=== PATIENT | female | born 1980 | race American Indian/Alaskan Native ===

== ENCOUNTER → 2024-09-04 16:16 | Outpatient (CLI) | payer SELFPAY | PROVIDERS: Referring Provider Internal Medicine; Visit Provider Internal Medicine | DX: Z23 Encounter for immunization (principal) | CPT/HCPCS: 90471; 90656 ==

== ENCOUNTER 2025-02-19 15:15 | Outpatient (RCR) | payer OTHER, SELFPAY ==
--- NOTE | 2025-01-19 15:50 | PT.OIE ---
Current Diagnoses Stiffness of right hip, not elsewhere classified (01/19/25) Stiffness of other specified joint, not elsewhere classified (01/19/25) Low back pain, unspecified (01/19/25) Weakness (01/19/25) Past Medical History (Last Updated 12/21/24 @ 19:48 by Rupali Masterson) Abnormal Pap smear of cervix Carpal tunnel syndrome (~2002) Chicken pox Decreased hearing Depression Foot pain Hearing loss Migraines Shoulder pain (~2018) Past Surgical History (Last Updated 12/21/24 @ 19:48 by Rupali Masterson) Anesthesia History of eye surgery Visit Care Team Role Provider Type Susy Dominique MD Attending Provider Physician Family Provider Primary Care Provider Referring Provider Specialty: Family Practice [employer] Address: [address] [place] [address], [facility] Email: [email or web address] Physical Therapy Initial Evaluation PT-OP-A Visit Information Start: 01/18/25 16:17 Freq: Status: Active Protocol: Document 01/19/25 07:27 NM (Rec: 01/19/25 12:27 NM [id number]) Out-Patient Physical Therapy Visit Information Visit Information Visit Type Initial Evaluation Visit Note Magaly Visit Start Time 08:17 Visit Stop Time 09:00 Visit Number 1 Evaluation Information Evaluation Date 01/19/25 PT-OP-B Current Condition Start: 01/18/25 16:17 Freq: Status: Active Protocol: Document 01/19/25 07:27 NM (Rec: 01/19/25 12:27 NM [id number]) Current Condition History of Current Condition Onset Date October 2024 Current Complaints pain, tingling History of Current Condition Pt tweaked her back when lifting a couch from a storage shed, reports that occurred Oct 2024. Gradual onset of pain. Did not seek immediate medical attention. Worse with lifting, standing at sink for work (low sink, has to lean over), driving, sitting. 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 She reports a shooting type pain when lifting, she reports that pain the radiates from the sacrum to mid thoracic spine. Reports that when driving and sitting , she has shooting pain that radiates to the R hip. Haider changes to bowel or bladder control. Pt works from 7-11 or 11:30 (able to take a break earlier than that), 45 min break for lunch/break. Pt reports that she gets tingling into last 2 toes on ea foot, occurs in sitting but only happens occasionally; 15-20 min lasts, better with movement, does not occur with standing/working, only with sitting. Sleeps on L side, occasionally R hip pain, but usually only feel stiff. Prior Treatments and Tests No imaging performed at this time Treatment Goals Patient/Caregiver Goals driving with less pain, lifting with less pain, standing with less pain Current Functional Impairments (Reported) Functional Limitations- Mobility/Gait standing: no limitations sitting/drivin min (has to lean chair back, truck)- David greene Functional Limitations- Work/School lifting c/ 25# from ground level (50# but has coworkers assist) has to slide boxes on carts vs carrying PT-OP-C Subjective Start: 01/18/25 16:17 Freq: Status: Active Protocol: Document 01/19/25 07:27 NM (Rec: 01/19/25 12:27 NM [id number]) OP-PT Subjective Patient Comments Patient Comments Pt consents to participate in PT evaluation Patient Questionnaires Oswestry Low Back Index Oswestry Score 20/100 OP-PT Pain Assessment Location lumbar spine Pain Location Details along spine Intensity 3 Scale Used Numeric (0 - 10) Description Dull,Shooting Description- Other worst: 7-8 Pain Aggravating Factors Position,ADL's,Activity, Sitting,Bending,Lifting Pain Alleviating Factors Cold,Heat,Medication Other Pain Alleviating Factors hot-cold pack, alternates aleve-ibuprofen (takes pm, prn lunch) PT-OP-F Manual Assessment Start: 01/18/25 16:17 Freq: Status: Active Protocol: Document 01/19/25 07:27 NM (Rec: 01/19/25 12:27 NM [id number]) Manual Assessments Soft Tissue Assessment Soft Tissue Mobility Assessment Tightness of hip flexors, R hamstring > L hamstring Joint Mobility Assessment Joint Mobility Assessment Hypomobility of lumbar spine with PA springing, mild tenderness at upper lumbar spine PT-OP-G Mobility & Gait Start: 01/18/25 16:17 Freq: Status: Active Protocol: Document 01/19/25 07:27 NM (Rec: 02/18/25 16:00 NM [id number]) OP Gait Assessment Gait Gait Assistance Required: Independent Distance (Feet) 150 Comments Gait Comments slightly antalgic R stance, lateral trunk lean PT-OP-J Posture/Palpation/Skin Start: 01/18/25 16:17 Freq: Status: Active Protocol: Document 01/19/25 07:27 NM (Rec: 01/19/25 12:27 NM [id number]) Posture Evaluation Position Standing Head/C-Spine Posture Forward Head Shoulder Posture (L) Rounded,(R) Rounded Knee Posture (L) Genu Valgus,(R) Genu Valgus Comments Posture Comments iliacs rotated decreased core stabilization Palpation Assessment Location R hip Palpation Details Tenderness along greater trochanter, glute medius, insertion, glute max especially along SIJ lumbar spine Palpation Details Tenderness to palpation along TL junction, L1-5 R>L, R/L PSIS, following iliac crest on R side posterior > anterior no tenderness along SIJ PT-OP-K Range of Motion Start: 01/18/25 16:17 Freq: Status: Active Protocol: Document 01/19/25 07:27 NM (Rec: 01/19/25 12:27 NM [id number]) Lumbar Spine Range of Motion Lumbar Spine Active Percentage Flexion 100 Extension 100 Rotation Left 100 Rotation Right 100 Lateral Flexion Left 100 Lateral Flexion Right 100 Comments pain reproduced with end range extension, radiates to anterior hip Hip Goniometric Range of Motion Hip Right Flexion w/Knee Flexed 100 Abduction 20 Internal Rotation 25 External Rotation 25 Comments pain with IR and ER Left Flexion w/Knee Flexed 110 Abduction 20 Internal Rotation 30 External Rotation 25 PT-OP-L Special Tests Start: 01/18/25 16:17 Freq: Status: Active Protocol: Document 01/19/25 07:27 NM (Rec: 01/19/25 12:27 NM [id number]) Special Tests Lumbar Spine Special Tests Straight Leg Raise Test Results + Comments R Slump Test Results + Comments B (R>L) traction Test Results + alvarez/quadrant Test Results + Comments R Hip Special Tests Stinchfield Resisted Hip Flexion Test Results - FADIR Test Results + BALWINDER Test Results - Posterior Labral Test Test Results - Anterior Labral Test Test Results - Scour Test Test Results - PT-OP-M Strength Start: 01/18/25 16:17 Freq: Status: Active Protocol: Document 01/19/25 07:27 NM (Rec: 01/19/25 12:27 NM [id number]) Trunk Strength Trunk Manual Muscle Testing Flexion 4 Good Extension 4 Good Rotation Left 4 Good Rotation Right 4 Good Lateral Flexion Left 4 Good Lateral Flexion Right 4 Good Comments pain with resisted lateral flexion R Hip Strength Hip Manual Muscle Testing Right Flexion (L2) 4- Good- Extension (S1) 4- Good- Abduction 4- Good- Adduction 4- Good- External Rotation 4- Good- Internal Rotation 4- Good- Comments abduction painful at lateral hip; mild pain reproduction with ER/IR Left Flexion (L2) 4- Good- Extension (S1) 4 Good Abduction 4 Good Adduction 4 Good External Rotation 4 Good Internal Rotation 4 Good Knee Strength Knee Manual Muscle Testing Right Flexion (S2) 4 Good Extension (L3) 4 Good Left Flexion (S2) 4 Good Extension (L3) 4 Good PT-OP-Q Treatments Start: 01/18/25 16:17 Freq: Status: Active Protocol: Document 01/19/25 07:27 NM (Rec: 01/19/25 12:27 NM [id number]) Therapeutic Exercises Supine Exercises self lumbar traction Equipment Used bolster Reps/Minutes 2 min Comments educated on use during day to offload back bridge Supine Exercise Name HEP Side bilateral Equipment Used cued ppt Reps/Minutes 10 knee to chest Supine Exercise Name for stretch- HEP Side left Reps/Minutes 2x30 Comments feels really good Prone Exercises prone on elbows Reps/Minutes 15 sec Comments poor tolerance prone lying Equipment Used hands on head Reps/Minutes 1 min Comments jaron well Self-Care/Home Management Treatment Education Patient Education Joint Protection,Pain Management,Posture Other Education Educated with anatomical spinal model on spinal anatomy , relation of discs and nerves , radiating vs radicular pain, hydrostatic pressure, body mechanics Education on general activity modifications including adjusting break schedule to decrease strain on low back vs taking breaks all at once PT-OP-T Assessment and Plan Start: 01/18/25 16:17 Freq: Status: Active Protocol: Document 01/19/25 07:27 NM (Rec: 01/19/25 12:27 NM [id number]) Physical Therapy Assessment Rehab Potential Rehabilitation Potential Good Evaluation Complexity Number of Personal Factors/Comorbidities 3 or More Number of Body Systems Impaired 3 Clinical Presentation at Evaluation Stable Impairments Impairments Activity Tolerance,Functional Activities,Functional Mobility ,Gait,Integument,Pain,Posture, ROM,Sensation,Soft Tissue Mobility,Strength,Transfers Other Concerns Age Related Concerns PMH: back pain, hearing problems, varicose veins. Hx of varicose laser procedure in 2020. Medications: ibuprofen and advil for pain relief Barriers to Rehabilitation Pt works job with repetitive tasks including standing, lifting and carrying 25-50# individually. Pt also has a commute to work Goals Three Impairment JOCELIN 20%, pain with sitting/ driving during commute Short Term Goal (STG) Pt will be educated on sitting ergonomics with driving to decrease pain STG Duration 02/12/25 Endless Track Vehicle Mechanic Goal (LTG) Pt will decrease JOCELIN <12% impairment in order to demonstrate improved tolerance for sitting and driving LTG Duration 03/19/25 Two Impairment repetitive body mechanics with lifting, poor activity modification Short Term Goal (STG) Pt will be educated on body mechanics with lifting and standing, in addition to activity modifications at work for improved pain management STG Duration 02/12/25 Half-Way Goal (LTG) Pt will report <3/10 back pain with standing and lifting at work LTG Duration 03/19/25 One Impairment not performing HEP to manage symptoms Endless Track Vehicle Mechanic Goal (LTG) Pt will report compliance with HEP at least 2-3x/wk in order to maximize progression with PT and transition to maintenance upon discharge. LTG Duration 03/19/25 Assessment Summary Assessment Pt is a 44 y.o. presenting with subacute lumbar and thoracic pain, in addition to R hip pain following lifting a couch in October 2024. Pain is worse in sitting, standing with flexion, lifting, carrying, and driving. Pt has no limitations in trunk ROM, but pain is present with full extension; R hip ROM also reproduces familiar symptoms especially along iliac crest/ groin. Symptoms are reproduced with resisted R lateral flexion and hip abduction/ER/ IR; also with palpation along lumbar spine and abductors. Vertebral compression, slump, and straight leg raise reproduce pain on R side; traction and exercise relieves pain. Pt likely has neural tension in addition to discogenic pain following lifting incident with referral to R hip; however, will continue to assess R lateral hip pain and pain with hip abduction. Pt works job involving repetitive lifting 25-50# individually and standing for long periods of time. PT educated pt on exam findings and plan of care. Pt would benefit from skilled PT for progressive mobility and strengthening, in addition to education on activity modification and body mechanics in order to improve symptom management and activity tolerance. hip R - flexor, PSIS; disc Physical Therapy Plan Frequency and Duration Frequency of Treatment 2x/Week Duration of treatment (weeks) 8 Plan of Care Start Date 01/19/25 Plan of Care End Date 03/19/25 Therapeutic Interventions Therapeutic Interventions Balance Training,Gait Training ,Home Exercise Program,Joint Mobilizations,Manual Therapy, Neuromuscular Re-education, Orthotic/Prosthetic Management ,Patient/Caregiver Education, Self-Care/Home Management, Sensory Integration,Soft Tissue Mobilization,Taping, Therapeutic Activities, Therapeutic Exercises Modalities Cold Pack/Ice Massage,Electric Stimulation,Hot Packs, Traction- Mechanical, Ultrasound Next Visit Focus/Plan Next Note Type Treatment Note Next Visit Plan LTR, traction, sidelying offloading glute med sofia, STS vs bridge, side steps, hip strength HS length, can trial nerve gliding
--- NOTE | 2025-01-22 16:16 | PT.OTN ---
Current Diagnoses Stiffness of right hip, not elsewhere classified (01/22/25) Stiffness of other specified joint, not elsewhere classified (01/22/25) Low back pain, unspecified (01/22/25) Weakness (01/22/25) Physical Therapy Treatment Note PT-OP-A Visit Information Start: 01/18/25 16:17 Freq: Status: Active Protocol: Document 01/22/25 13:51 NM (Rec: 01/22/25 14:34 NM [id number]) Out-Patient Physical Therapy Visit Information Visit Information Visit Type Treatment Note Visit Note Magaly Visit Start Time 13:51 Visit Stop Time 14:30 Visit Number 2 Evaluation Information Evaluation Date 01/19/25 PT-OP-B Current Condition Start: 01/18/25 16:17 Freq: Status: Active Protocol: Document 01/19/25 07:27 NM (Rec: 01/19/25 12:27 NM [id number]) Current Condition History of Current Condition Onset Date October 2024 Current Complaints pain, tingling History of Current Condition Pt tweaked her back when lifting a couch from a storage shed, reports that occurred Oct 2024. Gradual onset of pain. Did not seek immediate medical attention. Worse with lifting, standing at sink for work (low sink, has to lean over), driving, sitting. 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 She reports a shooting type pain when lifting, she reports that pain the radiates from the sacrum to mid thoracic spine. Reports that when driving and sitting , she has shooting pain that radiates to the R hip. Haider changes to bowel or bladder control. Pt works from 7-11 or 11:30 (able to take a break earlier than that), 45 min break for lunch/break. Pt reports that she gets tingling into last 2 toes on ea foot, occurs in sitting but only happens occasionally; 15-20 min lasts, better with movement, does not occur with standing/working, only with sitting. Sleeps on L side, occasionally R hip pain, but usually only feel stiff. Prior Treatments and Tests No imaging performed at this time Treatment Goals Patient/Caregiver Goals driving with less pain, lifting with less pain, standing with less pain Current Functional Impairments (Reported) Functional Limitations- Mobility/Gait standing: no limitations sitting/drivin min (has to lean chair back, truck)- David greene Functional Limitations- Work/School lifting c/ 25# from ground level (50# but has coworkers assist) has to slide boxes on carts vs carrying PT-OP-C Subjective Start: 01/18/25 16:17 Freq: Status: Active Protocol: Document 01/22/25 13:51 NM (Rec: 01/22/25 14:34 NM [id number]) OP-PT Subjective Patient Comments Patient Comments Pt reports 4-5/10 discomfort in low back. But states feeling better than at evaluation. Feels in L low back today and R hip. Did not try exercises due to chores. Just came from work. PT-OP-F Manual Assessment Start: 01/18/25 16:17 Freq: Status: Active Protocol: Document 01/19/25 07:27 NM (Rec: 01/19/25 12:27 NM [id number]) Manual Assessments Soft Tissue Assessment Soft Tissue Mobility Assessment Tightness of hip flexors, R hamstring > L hamstring Joint Mobility Assessment Joint Mobility Assessment Hypomobility of lumbar spine with PA springing, mild tenderness at upper lumbar spine PT-OP-G Mobility & Gait Start: 01/18/25 16:17 Freq: Status: Active Protocol: Document 01/19/25 07:27 NM (Rec: 01/19/25 16:00 NM [id number]) OP Gait Assessment Gait Gait Assistance Required: Independent Distance (Feet) 150 Comments Gait Comments slightly antalgic R stance, lateral trunk lean PT-OP-J Posture/Palpation/Skin Start: 01/18/25 16:17 Freq: Status: Active Protocol: Document 01/19/25 07:27 NM (Rec: 01/19/25 12:27 NM [id number]) Posture Evaluation Position Standing Head/C-Spine Posture Forward Head Shoulder Posture (L) Rounded,(R) Rounded Knee Posture (L) Genu Valgus,(R) Genu Valgus Comments Posture Comments iliacs rotated decreased core stabilization Palpation Assessment Location R hip Palpation Details Tenderness along greater trochanter, glute medius, insertion, glute max especially along SIJ lumbar spine Palpation Details Tenderness to palpation along TL junction, L1-5 R>L, R/L PSIS, following iliac crest on R side posterior > anterior no tenderness along SIJ PT-OP-K Range of Motion Start: 01/18/25 16:17 Freq: Status: Active Protocol: Document 01/19/25 07:27 NM (Rec: 01/19/25 12:27 NM [id number]) Lumbar Spine Range of Motion Lumbar Spine Active Percentage Flexion 100 Extension 100 Rotation Left 100 Rotation Right 100 Lateral Flexion Left 100 Lateral Flexion Right 100 Comments pain reproduced with end range extension, radiates to anterior hip Hip Goniometric Range of Motion Hip Right Flexion w/Knee Flexed 100 Abduction 20 Internal Rotation 25 External Rotation 25 Comments pain with IR and ER Left Flexion w/Knee Flexed 110 Abduction 20 Internal Rotation 30 External Rotation 25 PT-OP-L Special Tests Start: 01/18/25 16:17 Freq: Status: Active Protocol: Document 01/19/25 07:27 NM (Rec: 01/19/25 12:27 NM [id number]) Special Tests Lumbar Spine Special Tests Straight Leg Raise Test Results + Comments R Slump Test Results + Comments B (R>L) traction Test Results + alvarez/quadrant Test Results + Comments R Hip Special Tests [facility] Resisted Hip Flexion Test Results - FADIR Test Results + BALWINDER Test Results - Posterior Labral Test Test Results - Anterior Labral Test Test Results - Scour Test Test Results - PT-OP-M Strength Start: 01/18/25 16:17 Freq: Status: Active Protocol: Document 01/19/25 07:27 NM (Rec: 01/19/25 12:27 NM [id number]) Trunk Strength Trunk Manual Muscle Testing Flexion 4 Good Extension 4 Good Rotation Left 4 Good Rotation Right 4 Good Lateral Flexion Left 4 Good Lateral Flexion Right 4 Good Comments pain with resisted lateral flexion R Hip Strength Hip Manual Muscle Testing Right Flexion (L2) 4- Good- Extension (S1) 4- Good- Abduction 4- Good- Adduction 4- Good- External Rotation 4- Good- Internal Rotation 4- Good- Comments abduction painful at lateral hip; mild pain reproduction with ER/IR Left Flexion (L2) 4- Good- Extension (S1) 4 Good Abduction 4 Good Adduction 4 Good External Rotation 4 Good Internal Rotation 4 Good Knee Strength Knee Manual Muscle Testing Right Flexion (S2) 4 Good Extension (L3) 4 Good Left Flexion (S2) 4 Good Extension (L3) 4 Good PT-OP-Q Treatments Start: 01/18/25 16:17 Freq: Status: Active Protocol: Document 01/22/25 13:51 NM (Rec: 01/22/25 14:34 NM [id number]) Therapeutic Exercises Supine Exercises pelvic tilts Supine Exercise Name posterior pelvic tilts Side bilateral Reps/Minutes 15 LTR Side bilateral Reps/Minutes 15 ea TrA Supine Exercise Name 1. activation, 2. BKFO Side bilateral Reps/Minutes 10 ea Comments verbal and tactile cues bridge Supine Exercise Name HEP Side bilateral Resistance teal band level 2 at thighs Equipment Used c/ ppt Reps/Minutes 2x10 Comments no pain knee to chest Supine Exercise Name HEP review: 1. stretch uni, 2. stretch B, 3. repeated on blue swazi ball Side bilateral Equipment Used c/ ppt Reps/Minutes 60 ea Standing Exercises hip abduction Side bilateral Resistance AROM Equipment Used @ counter top Reps/Minutes 10 ea Comments c/ core bracing; needs cues Manual Therapy Treatment Consent Patient gave verbal consent for manual Yes treatment Soft Tissue Mobilization hips Body Location glutes Mobilization Type Rolling,Strumming,Sustained Pressure Intensity/Depth Moderate Body Position Prone Comments Positioned with pillow under hips. Tenderness along glute especially top of iliac crest toward greater trochanter. lumbar spine Body Location paraspinals, QL, lat Mobilization Type Rolling,Strumming,Sustained Pressure Intensity/Depth Superficial Body Position Prone Comments Positioned with pillow under hips. Mild tenderness L side today, QL area. Improved with mobilization PT-OP-T Assessment and Plan Start: 01/18/25 16:17 Freq: Status: Active Protocol: Document 01/22/25 13:51 NM (Rec: 01/22/25 14:34 NM [id number]) Physical Therapy Assessment Goals Three Impairment JOCELIN 20%, pain with sitting/ driving during commute Short Term Goal (STG) Pt will be educated on sitting ergonomics with driving to decrease pain STG Duration 02/12/25 Alf Goal (LTG) Pt will decrease JOCELIN <12% impairment in order to demonstrate improved tolerance for sitting and driving LTG Duration 03/19/25 Two Impairment repetitive body mechanics with lifting, poor activity modification Short Term Goal (STG) Pt will be educated on body mechanics with lifting and standing, in addition to activity modifications at work for improved pain management STG Duration 02/12/25 Administration Professional Goal (LTG) Pt will report <3/10 back pain with standing and lifting at work LTG Duration 03/19/25 One Impairment not performing HEP to manage symptoms Alf Goal (LTG) Pt will report compliance with HEP at least 2-3x/wk in order to maximize progression with PT and transition to maintenance upon discharge. LTG Duration 03/19/25 Assessment Summary Assessment Pt tolerated session well, no increeased pain. However, has tendency to feel most exercises in R anterior hip without cueing for posterior pelvic tilt. Demos anterior pelvic tilt usually. PT provided education on more neutral spine positioning for exercises and posture, especially at work. Initiated core bracing and gentle glute strengthening. Moderate cueing for correct execution and to minimize compensations. Progressing with core bracing. Pt does have slight R glute pain c/ active hip abd but decreased with reps and partial ROM. Tenderness over R posterorlateral glute, trigger points present. Physical Therapy Plan Frequency and Duration Frequency of Treatment 2x/Week Duration of treatment (weeks) 8 Plan of Care Start Date 01/19/25 Plan of Care End Date 03/19/25 Therapeutic Interventions Therapeutic Interventions Balance Training,Gait Training ,Home Exercise Program,Joint Mobilizations,Manual Therapy, Neuromuscular Re-education, Orthotic/Prosthetic Management ,Patient/Caregiver Education, Self-Care/Home Management, Sensory Integration,Soft Tissue Mobilization,Taping, Therapeutic Activities, Therapeutic Exercises Modalities Cold Pack/Ice Massage,Electric Stimulation,Hot Packs, Traction- Mechanical, Ultrasound Next Visit Focus/Plan Next Note Type Treatment Note Next Visit Plan Reassess core bracing, trial supine vs standing hip abd sofia. Progress bridge to on ball or STS. Possible quadruped hip strengthening and core bracing. sciatic nerve glide, cat camel, KTC vs child pose. Postural education HS length, can trial nerve gliding manual to glute, LS, can trial hip mobilizations
--- NOTE | 2025-01-26 16:49 | PT.OTN ---
Current Diagnoses Stiffness of right hip, not elsewhere classified (01/26/25) Stiffness of other specified joint, not elsewhere classified (01/26/25) Low back pain, unspecified (01/26/25) Weakness (01/26/25) Physical Therapy Treatment Note PT-OP-A Visit Information Start: 01/18/25 16:17 Freq: Status: Active Protocol: Document 01/26/25 15:28 NBM (Rec: 01/26/25 16:48 NBM [id number]) Out-Patient Physical Therapy Visit Information Visit Information Visit Type Treatment Note Visit Note Magaly Visit Start Time 15:22 Visit Stop Time 16:02 Visit Number 3 Number of HOME DECORATOR Visits 1 Evaluation Information Evaluation Date 01/19/25 PT-OP-B Current Condition Start: 01/18/25 16:17 Freq: Status: Active Protocol: Document 01/19/25 07:27 NM (Rec: 01/19/25 12:27 NM [id number]) Current Condition History of Current Condition Onset Date October 2024 Current Complaints pain, tingling History of Current Condition Pt tweaked her back when lifting a couch from a storage shed, reports that occurred Oct 2024. Gradual onset of pain. Did not seek immediate medical attention. Worse with lifting, standing at sink for work (low sink, has to lean over), driving, sitting. 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 She reports a shooting type pain when lifting, she reports that pain the radiates from the sacrum to mid thoracic spine. Reports that when driving and sitting , she has shooting pain that radiates to the R hip. Haider changes to bowel or bladder control. Pt works from 7-11 or 11:30 (able to take a break earlier than that), 45 min break for lunch/break. Pt reports that she gets tingling into last 2 toes on ea foot, occurs in sitting but only happens occasionally; 15-20 min lasts, better with movement, does not occur with standing/working, only with sitting. Sleeps on L side, occasionally R hip pain, but usually only feel stiff. Prior Treatments and Tests No imaging performed at this time Treatment Goals Patient/Caregiver Goals driving with less pain, lifting with less pain, standing with less pain Current Functional Impairments (Reported) Functional Limitations- Mobility/Gait standing: no limitations sitting/drivin min (has to lean chair back, truck)- David titan Functional Limitations- Work/School lifting c/ 25# from ground level (50# but has coworkers assist) has to slide boxes on carts vs carrying PT-OP-C Subjective Start: 01/18/25 16:17 Freq: Status: Active Protocol: Document 01/26/25 15:28 NBM (Rec: 01/26/25 16:48 NBM [id number]) OP-PT Subjective Patient Comments Patient Comments Pt reports 8/10 discomfort in low back R side and back of R hip after heavy lifting at work today (20#-25#). PT-OP-F Manual Assessment Start: 01/18/25 16:17 Freq: Status: Active Protocol: Document 01/19/25 07:27 NM (Rec: 01/19/25 12:27 NM [id number]) Manual Assessments Soft Tissue Assessment Soft Tissue Mobility Assessment Tightness of hip flexors, R hamstring > L hamstring Joint Mobility Assessment Joint Mobility Assessment Hypomobility of lumbar spine with PA springing, mild tenderness at upper lumbar spine PT-OP-G Mobility & Gait Start: 01/18/25 16:17 Freq: Status: Active Protocol: Document 01/19/25 07:27 NM (Rec: 01/19/25 16:00 NM [id number]) OP Gait Assessment Gait Gait Assistance Required: Independent Distance (Feet) 150 Comments Gait Comments slightly antalgic R stance, lateral trunk lean PT-OP-J Posture/Palpation/Skin Start: 01/18/25 16:17 Freq: Status: Active Protocol: Document 01/19/25 07:27 NM (Rec: 01/19/25 12:27 NM [id number]) Posture Evaluation Position Standing Head/C-Spine Posture Forward Head Shoulder Posture (L) Rounded,(R) Rounded Knee Posture (L) Genu Valgus,(R) Genu Valgus Comments Posture Comments iliacs rotated decreased core stabilization Palpation Assessment Location R hip Palpation Details Tenderness along greater trochanter, glute medius, insertion, glute max especially along SIJ lumbar spine Palpation Details Tenderness to palpation along TL junction, L1-5 R>L, R/L PSIS, following iliac crest on R side posterior > anterior no tenderness along SIJ PT-OP-K Range of Motion Start: 01/18/25 16:17 Freq: Status: Active Protocol: Document 01/19/25 07:27 NM (Rec: 01/19/25 12:27 NM [id number]) Lumbar Spine Range of Motion Lumbar Spine Active Percentage Flexion 100 Extension 100 Rotation Left 100 Rotation Right 100 Lateral Flexion Left 100 Lateral Flexion Right 100 Comments pain reproduced with end range extension, radiates to anterior hip Hip Goniometric Range of Motion Hip Right Flexion w/Knee Flexed 100 Abduction 20 Internal Rotation 25 External Rotation 25 Comments pain with IR and ER Left Flexion w/Knee Flexed 110 Abduction 20 Internal Rotation 30 External Rotation 25 PT-OP-L Special Tests Start: 01/18/25 16:17 Freq: Status: Active Protocol: Document 01/19/25 07:27 NM (Rec: 01/19/25 12:27 NM [id number]) Special Tests Lumbar Spine Special Tests Straight Leg Raise Test Results + Comments R Slump Test Results + Comments B (R>L) traction Test Results + alvarez/quadrant Test Results + Comments R Hip Special Tests [facility] Resisted Hip Flexion Test Results - FADIR Test Results + BALWINDER Test Results - Posterior Labral Test Test Results - Anterior Labral Test Test Results - Scour Test Test Results - PT-OP-M Strength Start: 01/18/25 16:17 Freq: Status: Active Protocol: Document 01/19/25 07:27 NM (Rec: 01/19/25 12:27 NM [id number]) Trunk Strength Trunk Manual Muscle Testing Flexion 4 Good Extension 4 Good Rotation Left 4 Good Rotation Right 4 Good Lateral Flexion Left 4 Good Lateral Flexion Right 4 Good Comments pain with resisted lateral flexion R Hip Strength Hip Manual Muscle Testing Right Flexion (L2) 4- Good- Extension (S1) 4- Good- Abduction 4- Good- Adduction 4- Good- External Rotation 4- Good- Internal Rotation 4- Good- Comments abduction painful at lateral hip; mild pain reproduction with ER/IR Left Flexion (L2) 4- Good- Extension (S1) 4 Good Abduction 4 Good Adduction 4 Good External Rotation 4 Good Internal Rotation 4 Good Knee Strength Knee Manual Muscle Testing Right Flexion (S2) 4 Good Extension (L3) 4 Good Left Flexion (S2) 4 Good Extension (L3) 4 Good PT-OP-Q Treatments Start: 01/18/25 16:17 Freq: Status: Active Protocol: Document 01/26/25 15:28 NBM (Rec: 01/26/25 16:48 NBM [id number]) Therapeutic Exercises Supine Exercises pelvic tilts Supine Exercise Name posterior pelvic tilts Side bilateral Reps/Minutes 15x 2 breathcycle hold Comments tactile cues, vc for no breathholding LTR Supine Exercise Name HEP review Side bilateral Reps/Minutes 15 ea Comments cues for PPT and breath and painfree ROM; dc'd d/t pain TrA Supine Exercise Name 1. activation, 2. BKFO (HEP review) Side bilateral Equipment Used self-monitoring medial to ASIS Reps/Minutes 10 x2 breathcycle hold ea Comments verbal and tactile cues bridge Supine Exercise Name HEP review Side bilateral Resistance teal band level 2 at thighs Equipment Used c/ ppt Reps/Minutes 2x10 Comments initial lumbar popping discomfort resolves w/ vc slower pacing,breathwork Standing Exercises low back stretch Standing Exercise Name 1. verbal review pt's personal HEP dez pose 2. Kitchen sink stretch Equipment Used handrail Reps/Minutes 45 Comments added to HEP hip abduction Standing Exercise Name hold: dc'd d/t pt c/o pain. Side bilateral Resistance AROM Equipment Used @ counter top Reps/Minutes 10 ea Comments c/ core bracing; needs cues for TrA, neutral spine, smaller range Self-Care/Home Management Treatment Education Patient Education Body Mechanics,Home Exercise Program,Pain Management, Posture Other Education -Added to HEP: kitchen sink stretch - no HO given. -Removed from HEP: hip abduction standing at counter. -Brief discussion of lifting mechanics for work w/ TrA engagement and breath. -HEP review and edu re: Transverse abdominis m. anatomy and activitation w/ visual aids, interrelationship w/ diaphragm and pelvic floor , and importance of not breathholding to improve core recruitment and low back pain. PT-OP-T Assessment and Plan Start: 01/18/25 16:17 Freq: Status: Active Protocol: Document 01/26/25 15:28 [facility] (Rec: 01/26/25 16:48 [facility] [id number]) Physical Therapy Assessment Goals Three Impairment JOCELIN 20%, pain with sitting/ driving during commute Short Term Goal (STG) Pt will be educated on sitting ergonomics with driving to decrease pain STG Duration 02/12/25 Half-Way Goal (LTG) Pt will decrease JOCELIN <12% impairment in order to demonstrate improved tolerance for sitting and driving LTG Duration 03/19/25 Two Impairment repetitive body mechanics with lifting, poor activity modification Short Term Goal (STG) Pt will be educated on body mechanics with lifting and standing, in addition to activity modifications at work for improved pain management STG Duration 02/12/25 Printer Assistant Goal (LTG) Pt will report <3/10 back pain with standing and lifting at work LTG Duration 03/19/25 One Impairment not performing HEP to manage symptoms Printer Assistant Goal (LTG) Pt will report compliance with HEP at least 2-3x/wk in order to maximize progression with PT and transition to maintenance upon discharge. LTG Duration 03/19/25 Assessment Summary Assessment Allen presents today with 8/ 10 pain in lumbar R side into posterior hip, likely secondary to heavy lifting (20 #-25#) at work today; pain improves to 7/10 end of session. Significant time spent edu pt re: Transverse abdominis m. anatomy and physiology w/ visual aids and emphasis on breathwork for carryover with HEP review and lifting mechanics. Self- awareness of TrA activation and breathwork improves with cues and repetition. She is challenged to maintain TrA during BKFO L>R but demos improved recruitment with cueing. During resisted bridging initial lumbar popping discomfort resolves w / cues for slower pacing, PPT and breathwork. Pt has pain in posterior R hip w/ hip abduction at counter possibly secondary to heavy lifting at work today, and which does not resolve w/ cues for neutral spine, TrA activation, breathwork and smaller range of motion - pt instructed to hold this exercise for now due to pain. Added to HEP: kitchen sink stretch - no HO given. Physical Therapy Plan Frequency and Duration Frequency of Treatment 2x/Week Duration of treatment (weeks) 8 Plan of Care Start Date 01/19/25 Plan of Care End Date 03/19/25 Therapeutic Interventions Therapeutic Interventions Balance Training,Gait Training ,Home Exercise Program,Joint Mobilizations,Manual Therapy, Neuromuscular Re-education, Orthotic/Prosthetic Management ,Patient/Caregiver Education, Self-Care/Home Management, Sensory Integration,Soft Tissue Mobilization,Taping, Therapeutic Activities, Therapeutic Exercises Modalities Cold Pack/Ice Massage,Electric Stimulation,Hot Packs, Traction- Mechanical, Ultrasound Next Visit Focus/Plan Next Note Type Treatment Note Next Visit Plan Next: hip abd iso in standing, bridging on ball. Manual prn. Sitting posture w/ PPT, squatting and lifting mechanics for work. POC: Reassess core bracing, trial supine vs standing hip abd isometrics. Progress bridge to on ball or STS. Possible quadruped hip strengthening and core bracing . sciatic nerve glide, EMIGDIO leblanc vs child pose. Postural education HS length, can trial nerve gliding manual to glute, LS, can trial hip mobilizations
--- NOTE | 2025-02-02 09:20 | PT.OTN ---
Current Diagnoses Stiffness of right hip, not elsewhere classified (02/02/25) Stiffness of other specified joint, not elsewhere classified (02/02/25) Low back pain, unspecified (02/02/25) Weakness (02/02/25) Physical Therapy Treatment Note PT-OP-A Visit Information Start: 01/18/25 16:17 Freq: Status: Active Protocol: Document 02/02/25 08:16 NM (Rec: 02/02/25 09:19 NM [id number]) Out-Patient Physical Therapy Visit Information Visit Information Visit Type Treatment Note Visit Note Magaly Visit Start Time 08:17 Visit Stop Time 09:00 Visit Number 4 Evaluation Information Evaluation Date 01/19/25 PT-OP-B Current Condition Start: 01/18/25 16:17 Freq: Status: Active Protocol: Document 01/19/25 07:27 NM (Rec: 01/19/25 12:27 NM [id number]) Current Condition History of Current Condition Onset Date October 2024 Current Complaints pain, tingling History of Current Condition Pt tweaked her back when lifting a couch from a storage shed, reports that occurred Oct 2024. Gradual onset of pain. Did not seek immediate medical attention. Worse with lifting, standing at sink for work (low sink, has to lean over), driving, sitting. 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 She reports a shooting type pain when lifting, she reports that pain the radiates from the sacrum to mid thoracic spine. Reports that when driving and sitting , she has shooting pain that radiates to the R hip. Haider changes to bowel or bladder control. Pt works from 7-11 or 11:30 (able to take a break earlier than that), 45 min break for lunch/break. Pt reports that she gets tingling into last 2 toes on ea foot, occurs in sitting but only happens occasionally; 15-20 min lasts, better with movement, does not occur with standing/working, only with sitting. Sleeps on L side, occasionally R hip pain, but usually only feel stiff. Prior Treatments and Tests No imaging performed at this time Treatment Goals Patient/Caregiver Goals driving with less pain, lifting with less pain, standing with less pain Current Functional Impairments (Reported) Functional Limitations- Mobility/Gait standing: no limitations sitting/drivin min (has to lean chair back, truck)- David greene Functional Limitations- Work/School lifting c/ 25# from ground level (50# but has coworkers assist) has to slide boxes on carts vs carrying PT-OP-C Subjective Start: 01/18/25 16:17 Freq: Status: Active Protocol: Document 02/02/25 08:16 NM (Rec: 02/02/25 09:19 NM [id number]) OP-PT Subjective Patient Comments Patient Comments Pt reports pain is decreasing, reports consistently 5-6/10 ( starting 8-10). Pt reports that the exercises that feel best with core exercises, banded hip ER. Bought a e-stim , which helps a lot. [place] good after last session. 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 PT-OP-F Manual Assessment Start: 01/18/25 16:17 Freq: Status: Active Protocol: Document 01/19/25 07:27 NM (Rec: 01/19/25 12:27 NM [id number]) Manual Assessments Soft Tissue Assessment Soft Tissue Mobility Assessment Tightness of hip flexors, R hamstring > L hamstring Joint Mobility Assessment Joint Mobility Assessment Hypomobility of lumbar spine with PA springing, mild tenderness at upper lumbar spine PT-OP-G Mobility & Gait Start: 01/18/25 16:17 Freq: Status: Active Protocol: Document 01/19/25 07:27 NM (Rec: 01/19/25 16:00 NM [id number]) OP Gait Assessment Gait Gait Assistance Required: Independent Distance (Feet) 150 Comments Gait Comments slightly antalgic R stance, lateral trunk lean PT-OP-J Posture/Palpation/Skin Start: 01/18/25 16:17 Freq: Status: Active Protocol: Document 01/19/25 07:27 NM (Rec: 01/19/25 12:27 NM [id number]) Posture Evaluation Position Standing Head/C-Spine Posture Forward Head Shoulder Posture (L) Rounded,(R) Rounded Knee Posture (L) Genu Valgus,(R) Genu Valgus Comments Posture Comments iliacs rotated decreased core stabilization Palpation Assessment Location R hip Palpation Details Tenderness along greater trochanter, glute medius, insertion, glute max especially along SIJ lumbar spine Palpation Details Tenderness to palpation along TL junction, L1-5 R>L, R/L PSIS, following iliac crest on R side posterior > anterior no tenderness along SIJ PT-OP-K Range of Motion Start: 01/18/25 16:17 Freq: Status: Active Protocol: Document 01/19/25 07:27 NM (Rec: 01/19/25 12:27 NM [id number]) Lumbar Spine Range of Motion Lumbar Spine Active Percentage Flexion 100 Extension 100 Rotation Left 100 Rotation Right 100 Lateral Flexion Left 100 Lateral Flexion Right 100 Comments pain reproduced with end range extension, radiates to anterior hip Hip Goniometric Range of Motion Hip Right Flexion w/Knee Flexed 100 Abduction 20 Internal Rotation 25 External Rotation 25 Comments pain with IR and ER Left Flexion w/Knee Flexed 110 Abduction 20 Internal Rotation 30 External Rotation 25 PT-OP-L Special Tests Start: 01/18/25 16:17 Freq: Status: Active Protocol: Document 01/19/25 07:27 NM (Rec: 01/19/25 12:27 NM [id number]) Special Tests Lumbar Spine Special Tests Straight Leg Raise Test Results + Comments R Slump Test Results + Comments B (R>L) traction Test Results + alvarez/quadrant Test Results + Comments R Hip Special Tests [facility] Resisted Hip Flexion Test Results - FADIR Test Results + BALWINDER Test Results - Posterior Labral Test Test Results - Anterior Labral Test Test Results - Scour Test Test Results - PT-OP-M Strength Start: 01/18/25 16:17 Freq: Status: Active Protocol: Document 01/19/25 07:27 NM (Rec: 01/19/25 12:27 NM [id number]) Trunk Strength Trunk Manual Muscle Testing Flexion 4 Good Extension 4 Good Rotation Left 4 Good Rotation Right 4 Good Lateral Flexion Left 4 Good Lateral Flexion Right 4 Good Comments pain with resisted lateral flexion R Hip Strength Hip Manual Muscle Testing Right Flexion (L2) 4- Good- Extension (S1) 4- Good- Abduction 4- Good- Adduction 4- Good- External Rotation 4- Good- Internal Rotation 4- Good- Comments abduction painful at lateral hip; mild pain reproduction with ER/IR Left Flexion (L2) 4- Good- Extension (S1) 4 Good Abduction 4 Good Adduction 4 Good External Rotation 4 Good Internal Rotation 4 Good Knee Strength Knee Manual Muscle Testing Right Flexion (S2) 4 Good Extension (L3) 4 Good Left Flexion (S2) 4 Good Extension (L3) 4 Good PT-OP-Q Treatments Start: 01/18/25 16:17 Freq: Status: Active Protocol: Document 02/02/25 08:16 NM (Rec: 02/02/25 09:19 NM [id number]) Therapeutic Exercises Supine Exercises fadi stretch Supine Exercise Name off end of bed Side bilateral Equipment Used knee pulled to chest, PT assist to lower Reps/Minutes 60 ea Comments edu to have sister help c/ lower if concerned clam Supine Exercise Name trialed in PT Side bilateral Resistance level 2 band thighs, modified hooklying Equipment Used c/ ppt and core brace Reps/Minutes 8 ea Comments improved control TrA Supine Exercise Name 1. activation, 2. BKFO (HEP review), 3. hooklying january, 4 . heel slides Equipment Used c/ ppt for january Reps/Minutes 10 ea c/ 2 sec breath cycles Comments verbal/tactile & self tactile cues form, slower for control; no pain bridge Supine Exercise Name HEP review Side bilateral Resistance level 2 band > no band Reps/Minutes 10 Comments cued wider RUDDY, ppt first then glute act before lift Standing Exercises hip abd isometric Standing Exercise Name glute med isometric Side bilateral Equipment Used short lever arm at wall Reps/Minutes 2x30 ea Comments reports feels good, RLE more challenging, no pain Manual Therapy Treatment Consent Patient gave verbal consent for manual Yes treatment Soft Tissue Mobilization hips Body Location glutes Mobilization Type Rolling,Strumming,Sustained Pressure Intensity/Depth Superficial Body Position Prone Comments Positioned with pillow under hips. Tenderness along glute especially top of iliac crest toward greater trochanter. Improved today, reports reduction in tenderness c/ mobilization lumbar spine Body Location paraspinals, QL, lat Mobilization Type Rolling,Strumming,Sustained Pressure Intensity/Depth Superficial Body Position Prone Comments Positioned with pillow under hips. Improved with mobilization. No tenderness today PT-OP-T Assessment and Plan Start: 01/18/25 16:17 Freq: Status: Active Protocol: Document 02/02/25 08:16 NM (Rec: 02/02/25 09:19 NM [id number]) Physical Therapy Assessment Goals Three Impairment JOCELIN 20%, pain with sitting/ driving during commute Short Term Goal (STG) Pt will be educated on sitting ergonomics with driving to decrease pain STG Duration 02/12/25 Retirement Goal (LTG) Pt will decrease JOCELIN <12% impairment in order to demonstrate improved tolerance for sitting and driving LTG Duration 03/19/25 Two Impairment repetitive body mechanics with lifting, poor activity modification Short Term Goal (STG) Pt will be educated on body mechanics with lifting and standing, in addition to activity modifications at work for improved pain management STG Duration 02/12/25 Retirement Goal (LTG) Pt will report <3/10 back pain with standing and lifting at work LTG Duration 03/19/25 One Impairment not performing HEP to manage symptoms Retirement Goal (LTG) Pt will report compliance with HEP at least 2-3x/wk in order to maximize progression with PT and transition to maintenance upon discharge. LTG Duration 03/19/25 Assessment Summary Assessment Pt reports feeling better after PT session but does not provide pain number as needs to get to work. Increased time spent on core activation, HEP review, and limiting breathholding with exercises as pt combines/confuses several exercises when asked. Needs both verbal and tactile/ self tactile cueing for correct execution. Improved pain management with posterior pelvic tilt. Progressed to leg extension core today, which pt able to perform with cueing correctly. Trialed fadi stretch and glute medius isometric for improved low back and hip pain management in standing. Pt responds better to manual this treatment, would continue to benefit from in future sessions especially to address restrictions in soft tissue length and hip mobility. Physical Therapy Plan Frequency and Duration Frequency of Treatment 2x/Week Duration of treatment (weeks) 8 Plan of Care Start Date 01/19/25 Plan of Care End Date 03/19/25 Therapeutic Interventions Therapeutic Interventions Balance Training,Gait Training ,Home Exercise Program,Joint Mobilizations,Manual Therapy, Neuromuscular Re-education, Orthotic/Prosthetic Management ,Patient/Caregiver Education, Self-Care/Home Management, Sensory Integration,Soft Tissue Mobilization,Taping, Therapeutic Activities, Therapeutic Exercises Modalities Cold Pack/Ice Massage,Electric Stimulation,Hot Packs, Traction- Mechanical, Ultrasound Next Visit Focus/Plan Next Note Type Treatment Note Next Visit Plan hip abd iso in standing, assess fadi stretch, add to HEP, review core as needed. Trial prone strengthening, STS c/ band Manual prn. Standing/Sitting posture w/ PPT, squatting and lifting mechanics for work. POC: Reassess core bracing, trial supine vs standing hip abd isometrics. Progress bridge to on ball or STS. Possible quadruped hip strengthening and core bracing . sciatic nerve glide, cat kevin, KTC vs child pose. Postural education HS length, can trial nerve gliding manual to glute, LS, can trial hip mobilizations
--- NOTE | 2025-02-04 09:02 | PT.OTN ---
Current Diagnoses Stiffness of right hip, not elsewhere classified (02/04/25) Stiffness of other specified joint, not elsewhere classified (02/04/25) Low back pain, unspecified (02/04/25) Weakness (02/04/25) Physical Therapy Treatment Note PT-OP-A Visit Information Start: 01/18/25 16:17 Freq: Status: Active Protocol: Document 02/04/25 08:18 NM (Rec: 02/04/25 09:02 NM [id number]) Out-Patient Physical Therapy Visit Information Visit Information Visit Type Treatment Note Visit Note Magaly Visit Start Time 08:19 Visit Stop Time 08:59 Visit Number 5 Evaluation Information Evaluation Date 01/19/25 PT-OP-B Current Condition Start: 01/18/25 16:17 Freq: Status: Active Protocol: Document 01/19/25 07:27 NM (Rec: 01/19/25 12:27 NM [id number]) Current Condition History of Current Condition Onset Date October 2024 Current Complaints pain, tingling History of Current Condition Pt tweaked her back when lifting a couch from a storage shed, reports that occurred Oct 2024. Gradual onset of pain. Did not seek immediate medical attention. Worse with lifting, standing at sink for work (low sink, has to lean over), driving, sitting. 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 She reports a shooting type pain when lifting, she reports that pain the radiates from the sacrum to mid thoracic spine. Reports that when driving and sitting , she has shooting pain that radiates to the R hip. Haider changes to bowel or bladder control. Pt works from 7-11 or 11:30 (able to take a break earlier than that), 45 min break for lunch/break. Pt reports that she gets tingling into last 2 toes on ea foot, occurs in sitting but only happens occasionally; 15-20 min lasts, better with movement, does not occur with standing/working, only with sitting. Sleeps on L side, occasionally R hip pain, but usually only feel stiff. Prior Treatments and Tests No imaging performed at this time Treatment Goals Patient/Caregiver Goals driving with less pain, lifting with less pain, standing with less pain Current Functional Impairments (Reported) Functional Limitations- Mobility/Gait standing: no limitations sitting/drivin min (has to lean chair back, truck)- David greene Functional Limitations- Work/School lifting c/ 25# from ground level (50# but has coworkers assist) has to slide boxes on carts vs carrying PT-OP-C Subjective Start: 01/18/25 16:17 Freq: Status: Active Protocol: Document 02/04/25 08:18 NM (Rec: 02/04/25 09:02 NM [id number]) OP-PT Subjective Patient Comments Patient Comments Pt reports 5/10 R hip today, no back pain. Reports felt good after last session. PT-OP-F Manual Assessment Start: 01/18/25 16:17 Freq: Status: Active Protocol: Document 01/19/25 07:27 NM (Rec: 01/19/25 12:27 NM [id number]) Manual Assessments Soft Tissue Assessment Soft Tissue Mobility Assessment Tightness of hip flexors, R hamstring > L hamstring Joint Mobility Assessment Joint Mobility Assessment Hypomobility of lumbar spine with PA springing, mild tenderness at upper lumbar spine PT-OP-G Mobility & Gait Start: 01/18/25 16:17 Freq: Status: Active Protocol: Document 01/19/25 07:27 NM (Rec: 01/19/25 16:00 NM [id number]) OP Gait Assessment Gait Gait Assistance Required: Independent Distance (Feet) 150 Comments Gait Comments slightly antalgic R stance, lateral trunk lean PT-OP-J Posture/Palpation/Skin Start: 01/18/25 16:17 Freq: Status: Active Protocol: Document 01/19/25 07:27 NM (Rec: 01/19/25 12:27 NM [id number]) Posture Evaluation Position Standing Head/C-Spine Posture Forward Head Shoulder Posture (L) Rounded,(R) Rounded Knee Posture (L) Genu Valgus,(R) Genu Valgus Comments Posture Comments iliacs rotated decreased core stabilization Palpation Assessment Location R hip Palpation Details Tenderness along greater trochanter, glute medius, insertion, glute max especially along SIJ lumbar spine Palpation Details Tenderness to palpation along TL junction, L1-5 R>L, R/L PSIS, following iliac crest on R side posterior > anterior no tenderness along SIJ PT-OP-K Range of Motion Start: 01/18/25 16:17 Freq: Status: Active Protocol: Document 01/19/25 07:27 NM (Rec: 01/19/25 12:27 NM [id number]) Lumbar Spine Range of Motion Lumbar Spine Active Percentage Flexion 100 Extension 100 Rotation Left 100 Rotation Right 100 Lateral Flexion Left 100 Lateral Flexion Right 100 Comments pain reproduced with end range extension, radiates to anterior hip Hip Goniometric Range of Motion Hip Right Flexion w/Knee Flexed 100 Abduction 20 Internal Rotation 25 External Rotation 25 Comments pain with IR and ER Left Flexion w/Knee Flexed 110 Abduction 20 Internal Rotation 30 External Rotation 25 PT-OP-L Special Tests Start: 01/18/25 16:17 Freq: Status: Active Protocol: Document 01/19/25 07:27 NM (Rec: 01/19/25 12:27 NM [id number]) Special Tests Lumbar Spine Special Tests Straight Leg Raise Test Results + Comments R Slump Test Results + Comments B (R>L) traction Test Results + alvarez/quadrant Test Results + Comments R Hip Special Tests Stinchfield Resisted Hip Flexion Test Results - FADIR Test Results + BALWINDER Test Results - Posterior Labral Test Test Results - Anterior Labral Test Test Results - Scour Test Test Results - PT-OP-M Strength Start: 01/18/25 16:17 Freq: Status: Active Protocol: Document 01/19/25 07:27 NM (Rec: 01/19/25 12:27 NM [id number]) Trunk Strength Trunk Manual Muscle Testing Flexion 4 Good Extension 4 Good Rotation Left 4 Good Rotation Right 4 Good Lateral Flexion Left 4 Good Lateral Flexion Right 4 Good Comments pain with resisted lateral flexion R Hip Strength Hip Manual Muscle Testing Right Flexion (L2) 4- Good- Extension (S1) 4- Good- Abduction 4- Good- Adduction 4- Good- External Rotation 4- Good- Internal Rotation 4- Good- Comments abduction painful at lateral hip; mild pain reproduction with ER/IR Left Flexion (L2) 4- Good- Extension (S1) 4 Good Abduction 4 Good Adduction 4 Good External Rotation 4 Good Internal Rotation 4 Good Knee Strength Knee Manual Muscle Testing Right Flexion (S2) 4 Good Extension (L3) 4 Good Left Flexion (S2) 4 Good Extension (L3) 4 Good PT-OP-Q Treatments Start: 01/18/25 16:17 Freq: Status: Active Protocol: Document 02/04/25 08:18 NM (Rec: 02/04/25 09:02 NM [id number]) Therapeutic Exercises Supine Exercises fadi stretch Supine Exercise Name HEP- off end of bed Side bilateral Equipment Used knee pulled to chest, PT assist to lower Reps/Minutes 60 ea Comments edu to have sister help c/ lower if concerned TrA Supine Exercise Name 1. heel slides, 2. alt heel slides, 3. trialed- dying bug c/ sliding heel Side bilateral Equipment Used c/ ppt Reps/Minutes 1. 8 ea, 2. 8 ea, 3. 10 ea Comments improved TrA c/ fewer cues, control and breathwork Standing Exercises hip extension Side bilateral Resistance AROM Reps/Minutes 10 ea Comments cued for PPT and core bracing hip abd isometric Standing Exercise Name HEP- @ counter top Side bilateral Equipment Used long lever arm at counter top, pillow between leg/wall Reps/Minutes 6x10 holds Other Exercises self soft tissue mobilization Other Exercise Name glute medius Side right Equipment Used c/ tennis ball Reps/Minutes 2 min Comments not on HO but edu can perform at home or at work for pain mgmt Manual Therapy Treatment Consent Patient gave verbal consent for manual Yes treatment Soft Tissue Mobilization hips Body Location glute, hip flexors Mobilization Type Rolling,Strumming,Sustained Pressure Intensity/Depth Superficial Body Position Sidelying Comments Mild tenderness and restrictions at superior glute along iliac crest to greater trochanter, improved with mobilization today educated on self STM using tennis ball or massage gun for pain management PT-OP-T Assessment and Plan Start: 01/18/25 16:17 Freq: Status: Active Protocol: Document 02/04/25 08:18 NM (Rec: 02/04/25 09:02 NM [id number]) Physical Therapy Assessment Goals Three Impairment JOCELIN 20%, pain with sitting/ driving during commute Short Term Goal (STG) Pt will be educated on sitting ergonomics with driving to decrease pain STG Duration 02/12/25 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) Pt will decrease JOCELIN <12% impairment in order to demonstrate improved tolerance for sitting and driving LTG Duration 03/19/25 Two Impairment repetitive body mechanics with lifting, poor activity modification Short Term Goal (STG) Pt will be educated on body mechanics with lifting and standing, in addition to activity modifications at work for improved pain management STG Duration 02/12/25 [facility] Goal (LTG) Pt will report <3/10 back pain with standing and lifting at work LTG Duration 03/19/25 One Impairment not performing HEP to manage symptoms Senior Living Goal (LTG) Pt will report compliance with HEP at least 2-3x/wk in order to maximize progression with PT and transition to maintenance upon discharge. LTG Duration 03/19/25 Assessment Summary Assessment Pt macoos improved core bracing and carryover to this session , coordinating motions, maintaining alignment, and control. Progressed to heel slide dying bugs with good tolerance. Reviewed and added glute medius isometric to HEP with bias into hip IR. Pt is challenged by isometric but does not have increased pain, only reports feeling muscle activation during exercise. Cueing needed for correct execution. Educated on pain monitoring per tendon loading protocol. Recommended trialing break next week during her morning while at work vs at end of day to assist with pain management as pt in decon for work. Physical Therapy Plan Frequency and Duration Frequency of Treatment 2x/Week Duration of treatment (weeks) 8 Plan of Care Start Date 01/19/25 Plan of Care End Date 03/19/25 Therapeutic Interventions Therapeutic Interventions Balance Training,Gait Training ,Home Exercise Program,Joint Mobilizations,Manual Therapy, Neuromuscular Re-education, Orthotic/Prosthetic Management ,Patient/Caregiver Education, Self-Care/Home Management, Sensory Integration,Soft Tissue Mobilization,Taping, Therapeutic Activities, Therapeutic Exercises Modalities Cold Pack/Ice Massage,Electric Stimulation,Hot Packs, Traction- Mechanical, Ultrasound Next Visit Focus/Plan Next Note Type Treatment Note Next Visit Plan progress hip abd iso in standing, seated core, add badn to hip ext, review core as needed. Trial prone strengthening, STS c/ band Manual prn. Standing/Sitting posture w/ PPT, squatting and lifting mechanics for work. POC: Reassess core bracing, trial supine vs standing hip abd isometrics. Progress bridge to on ball or STS. Possible quadruped hip strengthening and core bracing . sciatic nerve glide, cat camel, KTC vs child pose. Postural education HS length, can trial nerve gliding manual to glute, LS, can trial hip mobilizations
--- NOTE | 2025-02-08 15:03 | PT.OTN ---
Current Diagnoses Stiffness of right hip, not elsewhere classified (02/08/25) Stiffness of other specified joint, not elsewhere classified (02/08/25) Low back pain, unspecified (02/08/25) Weakness (02/08/25) Physical Therapy Treatment Note PT-OP-A Visit Information Start: 01/18/25 16:17 Freq: Status: Active Protocol: Document 02/08/25 08:16 NM (Rec: 02/08/25 09:00 NM [id number]) Out-Patient Physical Therapy Visit Information Visit Information Visit Type Progress Note Visit Note Magaly Visit Start Time 08:17 Visit Stop Time 08:56 Visit Number 6 Evaluation Information Evaluation Date 01/19/25 PT-OP-B Current Condition Start: 01/18/25 16:17 Freq: Status: Active Protocol: Document 01/19/25 07:27 NM (Rec: 01/19/25 12:27 NM [id number]) Current Condition History of Current Condition Onset Date October 2024 Current Complaints pain, tingling History of Current Condition Pt tweaked her back when lifting a couch from a storage shed, reports that occurred Oct 2024. Gradual onset of pain. Did not seek immediate medical attention. Worse with lifting, standing at sink for work (low sink, has to lean over), driving, sitting. 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 She reports a shooting type pain when lifting, she reports that pain the radiates from the sacrum to mid thoracic spine. Reports that when driving and sitting , she has shooting pain that radiates to the R hip. Haider changes to bowel or bladder control. Pt works from 7-11 or 11:30 (able to take a break earlier than that), 45 min break for lunch/break. Pt reports that she gets tingling into last 2 toes on ea foot, occurs in sitting but only happens occasionally; 15-20 min lasts, better with movement, does not occur with standing/working, only with sitting. Sleeps on L side, occasionally R hip pain, but usually only feel stiff. Prior Treatments and Tests No imaging performed at this time Treatment Goals Patient/Caregiver Goals driving with less pain, lifting with less pain, standing with less pain Current Functional Impairments (Reported) Functional Limitations- Mobility/Gait standing: no limitations sitting/drivin min (has to lean chair back, truck)- David greene Functional Limitations- Work/School lifting c/ 25# from ground level (50# but has coworkers assist) has to slide boxes on carts vs carrying PT-OP-C Subjective Start: 01/18/25 16:17 Freq: Status: Active Protocol: Document 02/08/25 08:16 NM (Rec: 02/08/25 09:00 NM [id number]) OP-PT Subjective Patient Comments Patient Comments Pt reports that her back has not bothered her even though working yesterday and today. Reports 5/10 pain but states that overall feeling better. She tried isometrics, reports no increased pain with activity but states 10 seconds is her max at this time. Feels like is helping, reports including core bracing with heel slides. Pt reports driving is better, states no longer has back pain, only hip pain that can be reduced with raising seat or extending legs. PT-OP-F Manual Assessment Start: 01/18/25 16:17 Freq: Status: Active Protocol: Document 01/19/25 07:27 NM (Rec: 01/19/25 12:27 NM [id number]) Manual Assessments Soft Tissue Assessment Soft Tissue Mobility Assessment Tightness of hip flexors, R hamstring > L hamstring Joint Mobility Assessment Joint Mobility Assessment Hypomobility of lumbar spine with PA springing, mild tenderness at upper lumbar spine PT-OP-G Mobility & Gait Start: 01/18/25 16:17 Freq: Status: Active Protocol: Document 01/19/25 07:27 NM (Rec: 01/19/25 16:00 NM [id number]) OP Gait Assessment Gait Gait Assistance Required: Independent Distance (Feet) 150 Comments Gait Comments slightly antalgic R stance, lateral trunk lean PT-OP-J Posture/Palpation/Skin Start: 01/18/25 16:17 Freq: Status: Active Protocol: Document 01/19/25 07:27 NM (Rec: 01/19/25 12:27 NM [id number]) Posture Evaluation Position Standing Head/C-Spine Posture Forward Head Shoulder Posture (L) Rounded,(R) Rounded Knee Posture (L) Genu Valgus,(R) Genu Valgus Comments Posture Comments iliacs rotated decreased core stabilization Palpation Assessment Location R hip Palpation Details Tenderness along greater trochanter, glute medius, insertion, glute max especially along SIJ lumbar spine Palpation Details Tenderness to palpation along TL junction, L1-5 R>L, R/L PSIS, following iliac crest on R side posterior > anterior no tenderness along SIJ PT-OP-K Range of Motion Start: 01/18/25 16:17 Freq: Status: Active Protocol: Document 02/08/25 08:16 NM (Rec: 02/08/25 09:00 NM [id number]) Lumbar Spine Range of Motion Lumbar Spine Active Percentage Flexion 100 Extension 100 Rotation Left 100 Rotation Right 100 Lateral Flexion Left 100 Lateral Flexion Right 100 Comments pain reproduced with end range extension, radiates to anterior hip 02/08/25: no pain with motion Hip Goniometric Range of Motion Hip Right Flexion w/Knee Flexed 100 Abduction 20 Internal Rotation 35 External Rotation 30 Comments pain with IR and ER; 25 deg ER and IR 02/08/25: still mild pain with IR but less than evaluation Left Flexion w/Knee Flexed 110 Abduction 20 Internal Rotation 30 External Rotation 30 Comments ER 25 deg at IE PT-OP-L Special Tests Start: 01/18/25 16:17 Freq: Status: Active Protocol: Document 01/19/25 07:27 NM (Rec: 01/19/25 12:27 NM [id number]) Special Tests Lumbar Spine Special Tests Straight Leg Raise Test Results + Comments R Slump Test Results + Comments B (R>L) traction Test Results + alvarez/quadrant Test Results + Comments R Hip Special Tests Stinchfield Resisted Hip Flexion Test Results - FADIR Test Results + BALWINDER Test Results - Posterior Labral Test Test Results - Anterior Labral Test Test Results - Scour Test Test Results - PT-OP-M Strength Start: 01/18/25 16:17 Freq: Status: Active Protocol: Document 02/08/25 08:16 NM (Rec: 02/08/25 09:00 NM [id number]) Trunk Strength Trunk Manual Muscle Testing Flexion 4 Good Extension 4 Good Rotation Left 4 Good Rotation Right 4 Good Lateral Flexion Left 4 Good Lateral Flexion Right 4 Good Comments pain with resisted lateral flexion R 02/08/25: no pain with resisted MMT Hip Strength Hip Manual Muscle Testing Right Flexion (L2) 4 Good Extension (S1) 4- Good- Abduction 4- Good- Adduction 4- Good- External Rotation 4- Good- Internal Rotation 4- Good- Comments abduction painful at lateral hip; mild pain reproduction with ER/IR 02/08/25: less pain with hip abd than IE; no change in strength MMT Left Flexion (L2) 4 Good Extension (S1) 4 Good Abduction 4 Good Adduction 4 Good External Rotation 4 Good Internal Rotation 4 Good PT-OP-Q Treatments Start: 01/18/25 16:17 Freq: Status: Active Protocol: Document 02/08/25 08:16 NM (Rec: 02/08/25 09:00 NM [id number]) Therapeutic Exercises Supine Exercises TrA Supine Exercise Name trialed in PT- dying bug (no sliding) Side bilateral Equipment Used c/ ppt Reps/Minutes 2 sets x 8 ea Comments cued form; tactile cue for ppt /low back to avoid lift Standing Exercises hip flexion Standing Exercise Name marching Side bilateral Resistance level 1 band Equipment Used B hand support for balance at counter Reps/Minutes 2x10 Comments challenging; no pain but fatigues quickly hip extension Side bilateral Resistance level 1 band ankles Equipment Used B hand support at counter Reps/Minutes 2x10 ea Comments improved ppt c/ core bracing hip abd isometric Standing Exercise Name HEP review at wall and progression to band Side bilateral Resistance level 1 band at ankles sofia Reps/Minutes 10x10 holds c/ band Comments no inc pain but challenging for R hip Therapeutic Activity Therapeutic Activity body mechanics Reps/Minutes 10 min Comments 1. hip hinge at wall with core bracing and cueing for mechanics, self tactile cues. no pain in back or hips 2. hip hinge to initiate crate grape picker with core bracing and cueing for mechanics, self tactile cues. no pain in back or hips 3. squat grape picker for crate with core bracing and cueing for mechanics, self tactile cues. no pain in back or hips. pt demos how picks up objects at work 4. sitting ergonomics HO issued. Recommended pillow under hips for driving PT-OP-T Assessment and Plan Start: 01/18/25 16:17 Freq: Status: Active Protocol: Document 02/08/25 08:16 NM (Rec: 02/08/25 09:00 NM [id number]) Physical Therapy Assessment Goals Three Impairment JOCELIN 20%, pain with sitting/ driving during commute Short Term Goal (STG) Pt will be educated on sitting ergonomics with driving to decrease pain 02/08/25: issued HO with sitting ergonomics STG Duration 02/12/25 [facility] Goal (LTG) Pt will decrease JOCELIN <12% impairment in order to demonstrate improved tolerance for sitting and driving 02/08/25: 10% impairment LTG Duration 03/19/25 PROGRESSING; MET 02/08 Two Impairment repetitive body mechanics with lifting, poor activity modification Short Term Goal (STG) Pt will be educated on body mechanics with lifting and standing, in addition to activity modifications at work for improved pain management 02/08/25: initiated body mechanics training with lifting and standing to improve work tolerance STG Duration 02/12/25 PROGRESSING 02/08 Barrel Turner Goal (LTG) Pt will report <3/10 back pain with standing and lifting at work LTG Duration 03/19/25 One Impairment not performing HEP to manage symptoms Barrel Turner Goal (LTG) Pt will report compliance with HEP at least 2-3x/wk in order to maximize progression with PT and transition to maintenance upon discharge. 02/08/25: progressing with IND re HEP LTG Duration 03/19/25 Assessment Summary Assessment Pt tolerated progressions to hip abd isometric with band and global hip strengthening with band well. No increased pain but challenging for pt; feels glute medius activation appropriately. Fatigues quickly with exercises, especially hip flexion and abduction isometric. Initiated body mechanics training for lifting and carrying at work. Cueing needed for correct execution but able to carryover with fewer cues during session as progressed without resistance; will continue to progress in future sessions. Physical Therapy Plan Frequency and Duration Frequency of Treatment 2x/Week Duration of treatment (weeks) 8 Plan of Care Start Date 01/19/25 Plan of Care End Date 03/19/25 Therapeutic Interventions Therapeutic Interventions Balance Training,Gait Training ,Home Exercise Program,Joint Mobilizations,Manual Therapy, Neuromuscular Re-education, Orthotic/Prosthetic Management ,Patient/Caregiver Education, Self-Care/Home Management, Sensory Integration,Soft Tissue Mobilization,Taping, Therapeutic Activities, Therapeutic Exercises Modalities Cold Pack/Ice Massage,Electric Stimulation,Hot Packs, Traction- Mechanical, Ultrasound Next Visit Focus/Plan Next Note Type Treatment Note Next Visit Plan progress hip abd iso in standing. Trial prone strengthening for trunk, STS c / band, pallof vs exercise ball Manual prn. Review and load as able squatting and lifting mechanics for work. lat, rows, cables When appropriate, trial progression with leg press, resisted hip abd vs side steps , vs slider squat, step up and step downs ecc for glute strength. manual to glute, LS, can trial hip mobilizations
--- NOTE | 2025-02-10 13:42 | PT.OTN ---
Current Diagnoses Stiffness of right hip, not elsewhere classified (02/10/25) Stiffness of other specified joint, not elsewhere classified (02/10/25) Low back pain, unspecified (02/10/25) Weakness (02/10/25) Physical Therapy Treatment Note PT-OP-A Visit Information Start: 01/18/25 16:17 Freq: Status: Active Protocol: Document 02/10/25 12:59 NM (Rec: 02/10/25 13:42 NM [id number]) Out-Patient Physical Therapy Visit Information Visit Information Visit Type Treatment Note Visit Note Magaly Visit Start Time 13:00 Visit Stop Time 13:40 Visit Number 7 (01/11 PN) Evaluation Information Evaluation Date 01/19/25 PT-OP-B Current Condition Start: 01/18/25 16:17 Freq: Status: Active Protocol: Document 01/19/25 07:27 NM (Rec: 01/19/25 12:27 NM [id number]) Current Condition History of Current Condition Onset Date October 2024 Current Complaints pain, tingling History of Current Condition Pt tweaked her back when lifting a couch from a storage shed, reports that occurred Oct 2024. Gradual onset of pain. Did not seek immediate medical attention. Worse with lifting, standing at sink for work (low sink, has to lean over), driving, sitting. 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 She reports a shooting type pain when lifting, she reports that pain the radiates from the sacrum to mid thoracic spine. Reports that when driving and sitting , she has shooting pain that radiates to the R hip. Haider changes to bowel or bladder control. Pt works from 7-11 or 11:30 (able to take a break earlier than that), 45 min break for lunch/break. Pt reports that she gets tingling into last 2 toes on ea foot, occurs in sitting but only happens occasionally; 15-20 min lasts, better with movement, does not occur with standing/working, only with sitting. Sleeps on L side, occasionally R hip pain, but usually only feel stiff. Prior Treatments and Tests No imaging performed at this time Treatment Goals Patient/Caregiver Goals driving with less pain, lifting with less pain, standing with less pain Current Functional Impairments (Reported) Functional Limitations- Mobility/Gait standing: no limitations sitting/drivin min (has to lean chair back, truck)- David titan Functional Limitations- Work/School lifting c/ 25# from ground level (50# but has coworkers assist) has to slide boxes on carts vs carrying PT-OP-C Subjective Start: 01/18/25 16:17 Freq: Status: Active Protocol: Document 02/10/25 12:59 NM (Rec: 02/10/25 13:42 NM [id number]) OP-PT Subjective Patient Comments Patient Comments Pt reports that she has been having a crazy day, reports 5/ 10 pain in her lumbar spine, states no hip pain. PT-OP-F Manual Assessment Start: 01/18/25 16:17 Freq: Status: Active Protocol: Document 01/19/25 07:27 NM (Rec: 01/19/25 12:27 NM [id number]) Manual Assessments Soft Tissue Assessment Soft Tissue Mobility Assessment Tightness of hip flexors, R hamstring > L hamstring Joint Mobility Assessment Joint Mobility Assessment Hypomobility of lumbar spine with PA springing, mild tenderness at upper lumbar spine PT-OP-G Mobility & Gait Start: 01/18/25 16:17 Freq: Status: Active Protocol: Document 01/19/25 07:27 NM (Rec: 01/19/25 16:00 NM [id number]) OP Gait Assessment Gait Gait Assistance Required: Independent Distance (Feet) 150 Comments Gait Comments slightly antalgic R stance, lateral trunk lean PT-OP-J Posture/Palpation/Skin Start: 01/18/25 16:17 Freq: Status: Active Protocol: Document 01/19/25 07:27 NM (Rec: 01/19/25 12:27 NM [id number]) Posture Evaluation Position Standing Head/C-Spine Posture Forward Head Shoulder Posture (L) Rounded,(R) Rounded Knee Posture (L) Genu Valgus,(R) Genu Valgus Comments Posture Comments iliacs rotated decreased core stabilization Palpation Assessment Location R hip Palpation Details Tenderness along greater trochanter, glute medius, insertion, glute max especially along SIJ lumbar spine Palpation Details Tenderness to palpation along TL junction, L1-5 R>L, R/L PSIS, following iliac crest on R side posterior > anterior no tenderness along SIJ PT-OP-K Range of Motion Start: 01/18/25 16:17 Freq: Status: Active Protocol: Document 02/08/25 08:16 NM (Rec: 02/08/25 09:00 NM [id number]) Lumbar Spine Range of Motion Lumbar Spine Active Percentage Flexion 100 Extension 100 Rotation Left 100 Rotation Right 100 Lateral Flexion Left 100 Lateral Flexion Right 100 Comments pain reproduced with end range extension, radiates to anterior hip 02/08/25: no pain with motion Hip Goniometric Range of Motion Hip Right Flexion w/Knee Flexed 100 Abduction 20 Internal Rotation 35 External Rotation 30 Comments pain with IR and ER; 25 deg ER and IR 02/08/25: still mild pain with IR but less than evaluation Left Flexion w/Knee Flexed 110 Abduction 20 Internal Rotation 30 External Rotation 30 Comments ER 25 deg at IE PT-OP-L Special Tests Start: 01/18/25 16:17 Freq: Status: Active Protocol: Document 01/19/25 07:27 NM (Rec: 01/19/25 12:27 NM [id number]) Special Tests Lumbar Spine Special Tests Straight Leg Raise Test Results + Comments R Slump Test Results + Comments B (R>L) traction Test Results + alvarez/quadrant Test Results + Comments R Hip Special Tests Stinchfield Resisted Hip Flexion Test Results - FADIR Test Results + BALWINDER Test Results - Posterior Labral Test Test Results - Anterior Labral Test Test Results - Scour Test Test Results - PT-OP-M Strength Start: 01/18/25 16:17 Freq: Status: Active Protocol: Document 02/08/25 08:16 NM (Rec: 02/08/25 09:00 NM [id number]) Trunk Strength Trunk Manual Muscle Testing Flexion 4 Good Extension 4 Good Rotation Left 4 Good Rotation Right 4 Good Lateral Flexion Left 4 Good Lateral Flexion Right 4 Good Comments pain with resisted lateral flexion R 02/08/25: no pain with resisted MMT Hip Strength Hip Manual Muscle Testing Right Flexion (L2) 4 Good Extension (S1) 4- Good- Abduction 4- Good- Adduction 4- Good- External Rotation 4- Good- Internal Rotation 4- Good- Comments abduction painful at lateral hip; mild pain reproduction with ER/IR 02/08/25: less pain with hip abd than IE; no change in strength MMT Left Flexion (L2) 4 Good Extension (S1) 4 Good Abduction 4 Good Adduction 4 Good External Rotation 4 Good Internal Rotation 4 Good PT-OP-Q Treatments Start: 01/18/25 16:17 Freq: Status: Active Protocol: Document 02/10/25 12:59 NM (Rec: 02/10/25 13:42 NM [id number]) Therapeutic Exercises Supine Exercises self lumbar traction Reps/Minutes 2 min c/ diaphragmatic breathing Comments post manual tx knee to chest Supine Exercise Name c/ small blue afghan ball Reps/Minutes 15 c/ slight hold at comfortable end range Comments neutral spine mechanics; improved pain mgmt Sitting Exercises lat pull down Side bilateral Resistance level 1 band Equipment Used 65 cm ball Reps/Minutes 20 Comments cued for lat activation, breathwork, improved c/ reps pallof press Side bilateral Resistance level 1 band Equipment Used on 65 cm ball Reps/Minutes 15 ea Comments cued form, breathwork; no pain afghan ball Sitting Exercise Name 1. circles, 2. a/p & m/l pelvic tilts, 3. TrA, 4. march Equipment Used 65 cm ball Reps/Minutes 1. 1 min ea CW/CCW, 2. 20 ea, 3. 10, 4. 10 ea Comments improved breathwork & pain mgmt, L january has small sharp pain in back Manual Therapy Treatment Consent Patient gave verbal consent for manual Yes treatment Soft Tissue Mobilization lumbar spine Body Location paraspinals, QL, lat Mobilization Type Rolling,Strumming,Sustained Pressure Intensity/Depth Superficial Body Position Prone Comments Positioned with pillow under hips. Mild tenderness along midline and just lateral to spine along paraspinals PT-OP-T Assessment and Plan Start: 01/18/25 16:17 Freq: Status: Active Protocol: Document 02/10/25 12:59 NM (Rec: 02/10/25 13:42 NM [id number]) Physical Therapy Assessment Goals Three Impairment JOCELIN 20%, pain with sitting/ driving during commute Short Term Goal (STG) Pt will be educated on sitting ergonomics with driving to decrease pain 02/08/25: issued HO with sitting ergonomics STG Duration 02/12/25 Business And Services Instructor Goal (LTG) Pt will decrease JOCELIN <12% impairment in order to demonstrate improved tolerance for sitting and driving 02/08/25: 10% impairment LTG Duration 03/19/25 PROGRESSING; MET 02/08 Two Impairment repetitive body mechanics with lifting, poor activity modification Short Term Goal (STG) Pt will be educated on body mechanics with lifting and standing, in addition to activity modifications at work for improved pain management 02/08/25: initiated body mechanics training with lifting and standing to improve work tolerance STG Duration 02/12/25 PROGRESSING 3/ Shelter Goal (LTG) Pt will report <3/10 back pain with standing and lifting at work LTG Duration 03/19/25 One Impairment not performing HEP to manage symptoms Business And Services Instructor Goal (LTG) Pt will report compliance with HEP at least 2-3x/wk in order to maximize progression with PT and transition to maintenance upon discharge. 02/08/25: progressing with IND re HEP LTG Duration 03/19/25 Assessment Summary Assessment Pt has good feedback for spinal mobility on afghan ball, reports reduction in pain with activity. She does have 1 instance of quick sharp pain in spine, palpable click present with LLE marching on afghan ball; resolves quickly, but pt reports that frequently happens at home, usually not painful. Trialed initiation of core/trunk strengthening on afghan ball with bands. Cueing needed for correct execution, breathwork initially; improved with reps. Pt would benefit from skilled PT for progressive strengthening and stability training in order to improve symptom management and postural re-training for work-related tasks. Physical Therapy Plan Frequency and Duration Frequency of Treatment 2x/Week Duration of treatment (weeks) 8 Plan of Care Start Date 01/19/25 Plan of Care End Date 03/19/25 Therapeutic Interventions Therapeutic Interventions Balance Training,Gait Training ,Home Exercise Program,Joint Mobilizations,Manual Therapy, Neuromuscular Re-education, Orthotic/Prosthetic Management ,Patient/Caregiver Education, Self-Care/Home Management, Sensory Integration,Soft Tissue Mobilization,Taping, Therapeutic Activities, Therapeutic Exercises Modalities Cold Pack/Ice Massage,Electric Stimulation,Hot Packs, Traction- Mechanical, Ultrasound Next Visit Focus/Plan Next Note Type Treatment Note Next Visit Plan update HEP. progress hip abd iso in standing. Trial prone strengthening vs quadruped or standing (depending on jaron) for trunk, STS c/ band, lumbar /trunk stability-pallof vs exercise ball; carries, step ups Manual prn. Review and load as able squatting and lifting mechanics for work. lat, rows, cables When appropriate, trial progression with leg press, resisted hip abd vs side steps , vs slider squat, step up and step downs ecc for glute strength. manual to glute, LS, can trial hip mobilizations
--- NOTE | 2025-02-19 16:38 | PT-OP ANOTE ---
1620: Pt reports to PT aide she only feels cold sensation on one side of back. Per discussion w/ PT follow up call placed to pt and voicemail left advising red flags for presenting to ER: saddle numbness, not noticing bladder/bowel urgency or release, changes in sweating or control of lower extremity. 1632: Call placed again to pt's cell and goes straight to voicemail. 1657: Spoke with pt who advised she did not feel cold sensation on R side of back, only on L, and she does get tingling in saddle area that comes and goes mainly with sitting for awhile. She denies bladder/bowel issues or changes such as not noticing urge or incontinence. Pt states she has MD appt on Saturday; advised per PT to present to ER for evaluation of symptoms; pt expresses understanding.
--- NOTE | 2025-02-19 17:03 | PT.OTN ---
Current Diagnoses Stiffness of right hip, not elsewhere classified (02/19/25) Stiffness of other specified joint, not elsewhere classified (02/19/25) Low back pain, unspecified (02/19/25) Weakness (02/19/25) Physical Therapy Treatment Note PT-OP-A Visit Information Start: 01/18/25 16:17 Freq: Status: Active Protocol: Document 02/19/25 15:29 NBM (Rec: 02/19/25 16:51 NBM [id number]) Out-Patient Physical Therapy Visit Information Visit Information Visit Type Treatment Note Visit Note Magaly Visit Start Time 15:27 Visit Stop Time 16:05 Visit Number 8 (3/10 PN) Number of MANAGER MONEY Visits 1 Evaluation Information Evaluation Date 01/19/25 PT-OP-B Current Condition Start: 01/18/25 16:17 Freq: Status: Active Protocol: Document 01/19/25 07:27 NM (Rec: 01/19/25 12:27 NM [id number]) Current Condition History of Current Condition Onset Date October 2024 Current Complaints pain, tingling History of Current Condition Pt tweaked her back when lifting a couch from a storage shed, reports that occurred Oct 2024. Gradual onset of pain. Did not seek immediate medical attention. Worse with lifting, standing at sink for work (low sink, has to lean over), driving, sitting. 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 She reports a shooting type pain when lifting, she reports that pain the radiates from the sacrum to mid thoracic spine. Reports that when driving and sitting , she has shooting pain that radiates to the R hip. Haider changes to bowel or bladder control. Pt works from 7-11 or 11:30 (able to take a break earlier than that), 45 min break for lunch/break. Pt reports that she gets tingling into last 2 toes on ea foot, occurs in sitting but only happens occasionally; 15-20 min lasts, better with movement, does not occur with standing/working, only with sitting. Sleeps on L side, occasionally R hip pain, but usually only feel stiff. Prior Treatments and Tests No imaging performed at this time Treatment Goals Patient/Caregiver Goals driving with less pain, lifting with less pain, standing with less pain Current Functional Impairments (Reported) Functional Limitations- Mobility/Gait standing: no limitations sitting/drivin min (has to lean chair back, truck)- David greene Functional Limitations- Work/School lifting c/ 25# from ground level (50# but has coworkers assist) has to slide boxes on carts vs carrying PT-OP-C Subjective Start: 01/18/25 16:17 Freq: Status: Active Protocol: Document 02/19/25 15:29 NBM (Rec: 02/19/25 16:51 NBM [id number]) OP-PT Subjective Patient Comments Patient Comments Delma reports she worked [employer] today. She reports her back pain has been steadily worse since the ex sitting on the ball and low back pops. It happened this morning as she was driving sitting. PT-OP-F Manual Assessment Start: 01/18/25 16:17 Freq: Status: Active Protocol: Document 01/19/25 07:27 NM (Rec: 01/19/25 12:27 NM [id number]) Manual Assessments Soft Tissue Assessment Soft Tissue Mobility Assessment Tightness of hip flexors, R hamstring > L hamstring Joint Mobility Assessment Joint Mobility Assessment Hypomobility of lumbar spine with PA springing, mild tenderness at upper lumbar spine PT-OP-G Mobility & Gait Start: 01/18/25 16:17 Freq: Status: Active Protocol: Document 01/19/25 07:27 NM (Rec: 01/19/25 16:00 NM [id number]) OP Gait Assessment Gait Gait Assistance Required: Independent Distance (Feet) 150 Comments Gait Comments slightly antalgic R stance, lateral trunk lean PT-OP-J Posture/Palpation/Skin Start: 01/18/25 16:17 Freq: Status: Active Protocol: Document 01/19/25 07:27 NM (Rec: 01/19/25 12:27 NM [id number]) Posture Evaluation Position Standing Head/C-Spine Posture Forward Head Shoulder Posture (L) Rounded,(R) Rounded Knee Posture (L) Genu Valgus,(R) Genu Valgus Comments Posture Comments iliacs rotated decreased core stabilization Palpation Assessment Location R hip Palpation Details Tenderness along greater trochanter, glute medius, insertion, glute max especially along SIJ lumbar spine Palpation Details Tenderness to palpation along TL junction, L1-5 R>L, R/L PSIS, following iliac crest on R side posterior > anterior no tenderness along SIJ PT-OP-K Range of Motion Start: 01/18/25 16:17 Freq: Status: Active Protocol: Document 02/08/25 08:16 NM (Rec: 02/08/25 09:00 NM [id number]) Lumbar Spine Range of Motion Lumbar Spine Active Percentage Flexion 100 Extension 100 Rotation Left 100 Rotation Right 100 Lateral Flexion Left 100 Lateral Flexion Right 100 Comments pain reproduced with end range extension, radiates to anterior hip 02/08/25: no pain with motion Hip Goniometric Range of Motion Hip Right Flexion w/Knee Flexed 100 Abduction 20 Internal Rotation 35 External Rotation 30 Comments pain with IR and ER; 25 deg ER and IR 02/08/25: still mild pain with IR but less than evaluation Left Flexion w/Knee Flexed 110 Abduction 20 Internal Rotation 30 External Rotation 30 Comments ER 25 deg at IE PT-OP-L Special Tests Start: 01/18/25 16:17 Freq: Status: Active Protocol: Document 01/19/25 07:27 NM (Rec: 01/19/25 12:27 NM [id number]) Special Tests Lumbar Spine Special Tests Straight Leg Raise Test Results + Comments R Slump Test Results + Comments B (R>L) traction Test Results + alvarez/quadrant Test Results + Comments R Hip Special Tests Stinchfield Resisted Hip Flexion Test Results - FADIR Test Results + BALWINDER Test Results - Posterior Labral Test Test Results - Anterior Labral Test Test Results - Scour Test Test Results - PT-OP-M Strength Start: 01/18/25 16:17 Freq: Status: Active Protocol: Document 02/08/25 08:16 NM (Rec: 02/08/25 09:00 NM [id number]) Trunk Strength Trunk Manual Muscle Testing Flexion 4 Good Extension 4 Good Rotation Left 4 Good Rotation Right 4 Good Lateral Flexion Left 4 Good Lateral Flexion Right 4 Good Comments pain with resisted lateral flexion R 02/08/25: no pain with resisted MMT Hip Strength Hip Manual Muscle Testing Right Flexion (L2) 4 Good Extension (S1) 4- Good- Abduction 4- Good- Adduction 4- Good- External Rotation 4- Good- Internal Rotation 4- Good- Comments abduction painful at lateral hip; mild pain reproduction with ER/IR 02/08/25: less pain with hip abd than IE; no change in strength MMT Left Flexion (L2) 4 Good Extension (S1) 4 Good Abduction 4 Good Adduction 4 Good External Rotation 4 Good Internal Rotation 4 Good PT-OP-Q Treatments Start: 01/18/25 16:17 Freq: Status: Active Protocol: Document 02/19/25 15:29 NBM (Rec: 02/19/25 16:51 [facility] [id number]) Therapeutic Exercises Supine Exercises TrA Supine Exercise Name 1. BKFO 2. Heel slides 3. Dying bug sliding-HEP>no sliding) 4.alt march-HEP Side bilateral Equipment Used c/ ppt Reps/Minutes 2 sets x 8 ea Comments cued form; tactile cue for ppt /low back to avoid lift Manual Therapy Treatment Consent Patient gave verbal consent for manual Yes treatment Soft Tissue Mobilization hips Body Location glute, hip flexors Mobilization Type Rolling,Strumming,Sustained Pressure Intensity/Depth Superficial Body Position Sidelying Comments Tenderness and restrictions at superior glute along iliac crest to greater trochanter. Monitored for pain. reminder of edu on self STM using tennis ball for pain management lumbar spine Body Location R>L paraspinals, QL, lat Mobilization Type Rolling,Strumming,Sustained Pressure,Other Intensity/Depth Superficial Body Position Prone Comments Positioned with pillow under hips. Monitored for pain. Manual stretch to R QL. Tenderness along midline and just lateral to spine along paraspinals and along R QL origin and insertion. Self-Care/Home Management Treatment Education Patient Education Body Mechanics,Home Exercise Program,Pain Management,Safety Other Education reminder re: edu for TrA activation with breath. reminder for self-STM w/ tennis ball for pain managment . edu to pt re: cryotherapy vs heat and use of alternating. PT-OP-R Modalities Start: 01/18/25 16:17 Freq: Status: Active Protocol: Document 02/19/25 15:29 NBM (Rec: 02/19/25 16:54 [facility] [id number]) Hot Pack/Cold Pack Treatment Cold Pack Location lumbar and superior gluteal m. Patient Position Supine Comments 8' w/ lower extremities elevated on bolster Pt reports to PT aide cold sensation noticed on one side of back only. Call placed to pt, see Assessment section and Administrative Note. PT-OP-T Assessment and Plan Start: 01/18/25 16:17 Freq: Status: Active Protocol: Document 02/19/25 15:29 NBM (Rec: 02/19/25 16:51 [facility] [id number]) Physical Therapy Assessment Goals Three Impairment JOCELIN 20%, pain with sitting/ driving during commute Short Term Goal (STG) Pt will be educated on sitting ergonomics with driving to decrease pain 02/08/25: issued HO with sitting ergonomics STG Duration 02/12/25 Residential Goal (LTG) Pt will decrease JOCELIN <12% impairment in order to demonstrate improved tolerance for sitting and driving 02/08/25: 10% impairment LTG Duration 03/19/25 PROGRESSING; MET 02/08 Two Impairment repetitive body mechanics with lifting, poor activity modification Short Term Goal (STG) Pt will be educated on body mechanics with lifting and standing, in addition to activity modifications at work for improved pain management 02/08/25: initiated body mechanics training with lifting and standing to improve work tolerance STG Duration 02/12/25 PROGRESSING 02/08 Residential Goal (LTG) Pt will report <3/10 back pain with standing and lifting at work LTG Duration 03/19/25 One Impairment not performing HEP to manage symptoms [employer] Machine Operator Goal (LTG) Pt will report compliance with HEP at least 2-3x/wk in order to maximize progression with PT and transition to maintenance upon discharge. 02/08/25: progressing with IND re HEP LTG Duration 03/19/25 Assessment Summary Assessment End of session pt reports to PT aide she only feels cold sensation on one side of back. Per discussion w/ PT follow up call placed to pt and voicemail left advising red flags for presenting to ER: saddle numbness, not noticing bladder/bowel urgency or release, changes in sweating or control of lower extremity. Treatment focus on manual therapy to back and gluteal m. and core training. Allen presents with 7/10 low to mid back pain which improves to 6/ 10 end of session. Pt requires cues for avoiding breathholding and lumbar hyperextension and pt is able to self-correct w/ supine ex's which resolve popping in back, except dying bug w/ lower extremity lift which is discontinued as too challenging for core; pt is unable to control thoracolumbar or lumbar hyperextension and popping in back. Added to HEP: supine alt marching and dying bug w/ heel slides - HO given. Edu to pt re: cryotherapy vs heat and lumbar ice pack used end of session 8'. Physical Therapy Plan Frequency and Duration Frequency of Treatment 2x/Week Duration of treatment (weeks) 8 Plan of Care Start Date 01/19/25 Plan of Care End Date 03/19/25 Therapeutic Interventions Therapeutic Interventions Balance Training,Gait Training ,Home Exercise Program,Joint Mobilizations,Manual Therapy, Neuromuscular Re-education, Orthotic/Prosthetic Management ,Patient/Caregiver Education, Self-Care/Home Management, Sensory Integration,Soft Tissue Mobilization,Taping, Therapeutic Activities, Therapeutic Exercises Modalities Cold Pack/Ice Massage,Electric Stimulation,Hot Packs, Traction- Mechanical, Ultrasound Next Visit Focus/Plan Next Note Type Treatment Note Next Visit Plan update HEP. progress hip abd iso in standing. Trial prone strengthening vs quadruped or standing (depending on jaron) for trunk, STS c/ band, lumbar /trunk stability-pallof vs exercise ball; carries, step ups Manual prn. Review and load as able squatting and lifting mechanics for work. lat, rows, cables When appropriate, trial progression with leg press, resisted hip abd vs side steps , vs slider squat, step up and step downs ecc for glute strength. manual to glute, LS, can trial hip mobilizations
--- NOTE | 2025-09-06 09:57 | PT.OPDS ---
Current Diagnoses Stiffness of right hip, not elsewhere classified (02/19/25) Stiffness of other specified joint, not elsewhere classified (02/19/25) Low back pain, unspecified (02/19/25) Weakness (02/19/25) Visit Care Team Role Provider Type Susy Dominique MD Attending Provider Physician Family Provider Primary Care Provider Referring Provider Specialty: Family Practice [employer] Address: [address] [place] [address] Email: [email or web address] Visit Number Visit Number 8 (02/08 PN) Discharge Summary PT-OP-A Visit Information Start: 01/18/25 16:17 Freq: Status: Active Protocol: Document 02/19/25 15:29 NBM (Rec: 02/19/25 16:51 NBM [id number]) Out-Patient Physical Therapy Visit Information Visit Information Visit Type Treatment Note Visit Note Magaly Visit Start Time 15:27 Visit Stop Time 16:05 Visit Number 8 (02/08 PN) 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 Gradual onset of pain. Did not seek immediate medical attention. Worse with lifting, standing at sink for work (low sink, has to lean over), driving, sitting. 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 She reports a shooting type pain when lifting, she reports that pain the radiates from the sacrum to mid thoracic spine. Reports that when driving and sitting, she has shooting pain that radiates to the R hip. Haider changes to bowel or bladder control. Pt works from 7-11 or 11: 30 (able to take a break earlier than that), 45 min break for lunch/break. Pt reports that she gets tingling into last 2 toes on ea foot, occurs in sitting but only happens occasionally; 15-20 min lasts, better with movement, does not occur with standing/working, only with sitting. Sleeps on L side, occasionally R hip pain, but usually only feel stiff. Prior Treatments and No imaging performed at this time Tests Treatment Goals Patient/Caregiver driving with less pain, lifting with less pain, Goals standing with less pain Current Functional Impairments (Reported) Functional standing: no limitations Limitations- sitting/drivin min (has to lean chair back, truck) Mobility/Gait - David greene Functional lifting c/ 25# from ground level (50# but has coworkers Limitations- Work/ assist) School has to slide boxes on carts vs carrying PT-OP-C Subjective Start: 01/18/25 16:17 Freq: Status: Active Protocol: Document 02/19/25 15:29 NBM (Rec: 02/19/25 16:51 NBM [id number]) OP-PT Subjective Patient Comments Patient Comments Delma reports she worked [employer] today. She reports her back pain has been steadily worse since the ex sitting on the ball and low back pops. It happened this morning as she was driving sitting. PT-OP-F Manual Assessment Start: 01/18/25 16:17 Freq: Status: Active Protocol: Document 01/19/25 07:27 NM (Rec: 01/19/25 12:27 NM [id number]) Manual Assessments Soft Tissue Assessment Soft Tissue Mobility Tightness of hip flexors, R hamstring > L hamstring Assessment Joint Mobility Assessment Joint Mobility Hypomobility of lumbar spine with PA springing, mild Assessment tenderness at upper lumbar spine PT-OP-G Mobility & Gait Start: 01/18/25 16:17 Freq: Status: Active Protocol: Document 01/19/25 07:27 NM (Rec: 01/19/25 16:00 NM [id number]) OP Gait Assessment Gait Gait Assistance Independent Required: Distance (Feet) 150 Comments Gait Comments slightly antalgic R stance, lateral trunk lean PT-OP-J Posture/Palpation/Skin Start: 01/18/25 16:17 Freq: Status: Active Protocol: Document 01/19/25 07:27 NM (Rec: 01/19/25 12:27 NM [id number]) Posture Evaluation Position Standing Head/C-Spine Posture Forward Head Shoulder Posture (L) Rounded,(R) Rounded Knee Posture (L) Genu Valgus,(R) Genu Valgus Comments Posture Comments iliacs rotated decreased core stabilization Palpation Assessment Location R hip Palpation Details Tenderness along greater trochanter, glute medius, insertion, glute max especially along SIJ lumbar spine Palpation Details Tenderness to palpation along TL junction, L1-5 R>L, R/ L PSIS, following iliac crest on R side posterior > anterior no tenderness along SIJ PT-OP-K Range of Motion Start: 01/18/25 16:17 Freq: Status: Active Protocol: Document 02/08/25 08:16 NM (Rec: 02/08/25 09:00 NM [id number]) Lumbar Spine Range of Motion Lumbar Spine Active Percentage Flexion 100 Extension 100 Rotation Left 100 Rotation Right 100 Lateral Flexion Left 100 Lateral Flexion 100 Right Comments pain reproduced with end range extension, radiates to anterior hip 02/08/25: no pain with motion Hip Goniometric Range of Motion Hip Right Flexion w/Knee 100 Flexed Abduction 20 Internal Rotation 35 External Rotation 30 Comments pain with IR and ER; 25 deg ER and IR 02/08/25: still mild pain with IR but less than evaluation Left Flexion w/Knee 110 Flexed Abduction 20 Internal Rotation 30 External Rotation 30 Comments ER 25 deg at IE PT-OP-L Special Tests Start: 01/18/25 16:17 Freq: Status: Active Protocol: Document 01/19/25 07:27 NM (Rec: 01/19/25 12:27 NM [id number]) Special Tests Lumbar Spine Special Tests Straight Leg Raise Test Results + Comments R Slump Test Results + Comments B (R>L) traction Test Results + alvarez/quadrant Test Results + Comments R Hip Special Tests Stinchfield Resisted Hip Flexion Test Results - FADIR Test Results + BALWINDER Test Results - Posterior Labral Test Test Results - Anterior Labral Test Test Results - Scour Test Test Results - PT-OP-M Strength Start: 01/18/25 16:17 Freq: Status: Active Protocol: Document 02/08/25 08:16 NM (Rec: 02/08/25 09:00 NM [id number]) Trunk Strength Trunk Manual Muscle Testing Flexion 4 Good Extension 4 Good Rotation Left 4 Good Rotation Right 4 Good Lateral Flexion Left 4 Good Lateral Flexion 4 Good Right Comments pain with resisted lateral flexion R 02/08/25: no pain with resisted MMT Hip Strength Hip Manual Muscle Testing Right Flexion (L2) 4 Good Extension (S1) 4- Good- Abduction 4- Good- Adduction 4- Good- External Rotation 4- Good- Internal Rotation 4- Good- Comments abduction painful at lateral hip; mild pain reproduction with ER/IR 02/08/25: less pain with hip abd than IE; no change in strength MMT Left Flexion (L2) 4 Good Extension (S1) 4 Good Abduction 4 Good Adduction 4 Good External Rotation 4 Good Internal Rotation 4 Good PT-OP-T Assessment and Plan Start: 01/18/25 16:17 Freq: Status: Active Protocol: Document 09/06/25 09:56 DCW (Rec: 09/06/25 09:57 [facility] [id number]) Physical Therapy Assessment Assessment Summary Assessment Pt has not been seen in seven months, will be discharged from skilled PT at this time. Physical Therapy Plan Discharge Physical Therapy Discharge Reasons No Longer Attending PT Next Visit Focus/Plan Next Note Type Discharge Summary
== END 2025-09-07 10:54 | disposition home or self-care (01) ==
LOC: PHYS 15:15
PROVIDERS: Family Provider Family Medicine; PCP Family Medicine; Referring Provider Family Medicine; Visit Provider Family Medicine
DX: M54.50 Low back pain, unspecified (principal); R53.1 Weakness; M25.651 Stiffness of right hip, not elsewhere classified; M25.69 Stiffness of other specified joint, not elsewhere classified
CPT/HCPCS: 97110; 97140; 97161; 97530; 97535

== ENCOUNTER → 2025-02-22 17:01 | Outpatient (CLI) | payer OTHER, SELFPAY ==
--- NOTE | 2025-02-22 17:03 | DI.RAD.S_ITS ---
PROCEDURE: XR LUMBAR SPINE 2-3V INDICATIONS: Low back pain TECHNIQUE: 3 views of the lumbar spine were acquired. COMPARISON: [facility], CR, XR HIP W PEL IF DONE RT 2V, 02/22/2025, 17:09. FINDINGS: Lumbar spine curvature and alignment: Normal. Bones: There are no osseous abnormalities. Disc spaces: Normal in height without significant degeneration. Soft tissues: A large heavily calcified mass spanning 11.5 cm is seen in the anterior true pelvis IMPRESSION: Normal lumbar spine. 11.5 cm heavily calcified mass in the anterior true pelvis. Suggest abdomen and pelvic CT Dictated by: James Mehta M.D. on 02/23/2025 at 10:44 Approved by: James Mehta M.D. on 02/23/2025 at 10:48
--- NOTE | 2025-02-22 17:03 | DI.RAD.S_ITS ---
PROCEDURE: XR HIP W PEL IF DONE RT 2V INDICATIONS: Right hip pain TECHNIQUE: Two views of the right hip were acquired. COMPARISON: None. FINDINGS: Bones: There are no osseous abnormalities. SI and hip joints: Normal in width and alignment without arthritic change Soft tissues: 11.5 cm heavily calcified mass is seen in the true pelvis. IMPRESSION: 11.5 cm heavily calcified mass in the true pelvis. Suggest abdomen and pelvic CT Dictated by: James Mehta M.D. on 02/23/2025 at 10:48 Approved by: James Mehta M.D. on 02/23/2025 at 10:49
== END ==
PROVIDERS: Family Provider Family Medicine; PCP Family Medicine; Referring Provider Family Medicine; Visit Provider Family Medicine
DX: M54.50 Low back pain, unspecified (principal); M25.551 Pain in right hip; R19.00 Intra-abdominal and pelvic swelling, mass and lump, unspecified site
CPT/HCPCS: 72100; 73502

== ENCOUNTER → 2025-02-24 09:01 | Outpatient (CLI) | payer OTHER, SELFPAY ==
[2025-02-24 10:02] LABS: Add Manual Diff / Slide Review NO; Basophils Absolute Auto 100 /uL (0-100); Basophils Percent Auto 0.9 % (0-2); Eosinophils Absolute Auto 400 /uL (0-450); Eosinophils Percent Auto 6.5 % (2-4); Hematocrit 36.5 % (36-46); Hemoglobin 12.3 g/dL (12.0-16.0); Lymphocytes Absolute Auto 1500 /uL (1100-4500); Mean Corpuscular HGB Conc 33.8 % (30-36); Mean Corpuscular Hemoglobin 30.3 PG (26-34); Mean Corpuscular Volume 89.7 fL (80-100); Monocytes Absolute Auto 400 /uL (0-900); Monocytes Percent Auto 6.6 % (3-14); Neutrophils Absolute Auto 4000 /uL (1500-7000); Platelet Count 261 X10^3/uL (150-400); Red Blood Cell Count 4.07 X10^6/uL (4.0-5.2); White Blood Cell Count 6.4 X10^3/uL (4.5-11.0)
[2025-02-24 10:35] LABS: Alanine Aminotransferase 18 IU/L (<35); Albumin 4.5 g/dL (3.5-5.0); Albumin Globulin Ratio 1.6 (1.0-2.8); Alkaline Phosphatase 72 U/L (38-126); Aspartate Aminotransferase 24 IU/L (14-36); BUN Creatinine Ratio 17.1 (6-22); Bilirubin Total 1.2 mg/dL (0.2-1.3); Blood Urea Nitrogen 13 mg/dL (7-17); Calcium 9.6 mg/dL (8.4-10.2); Carbon Dioxide 26 mmol/L (22-32); Chloride 105 mmol/L (98-107); Cholesterol 248 mg/dL (140-199); Estimated Glomerular Filt Rate > 60 mL/min (>60); Globulin 2.8 g/dL (1.7-4.1); Glucose 96 mg/dL (70-100); HDL Cholesterol 58 mg/dL (40-60); HEMOLYSIS < 15 (0-50); LDL Cholesterol Calculated 157 mg/dL (<100); Potassium 4.4 mmol/L (3.4-5.1); Sodium 140 mmol/L (137-145); Total Protein 7.3 g/dL (6.3-8.2); Triglycerides 163 mg/dL (35-150)
== END ==
LOC: LAB 09:02
PROVIDERS: Family Provider Family Medicine; PCP Family Medicine; Referring Provider Family Medicine; Visit Provider Family Medicine
DX: Z13.6 Encounter for screening for cardiovascular disorders (principal)
CPT/HCPCS: 36415; 80053; 80061; 85025

== ENCOUNTER 2025-02-26 10:28 | Emergency (ER) | payer OTHER, SELFPAY ==
[2025-02-26 10:35] VITALS: BP 129/83; PULSE 78; RESP 14; TEMP 36.1; O2SAT 97; BMI 32.4
[2025-02-26 11:23] LABS: Alanine Aminotransferase 22 IU/L (<35)
--- NOTE | 2025-02-26 11:30 | ED_ITS ---
HPI - General Adult General Chief complaint: Blood/Body fluid exposure Stated complaint: scissor poke Time Seen by Provider: 02/26/25 11:18 Mode of arrival: Ambulatory History of Present Illness HPI narrative: 45-year-old female generally healthy presents with concern for possible exposure to blood or body fluid. 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 The patient states she was cleaning up after a laparoscopic cholecystectomy procedure she states there was only 1 surgery today in the OR and so only 1 patient's body fluids to whom she may have been exposed. She has no concerns about returning to work today. Related Data Previous Rx's Medication Instructions Recorded gabapentin 100 mg capsule 100 mg PO BEDTIME #30 caps 02/22/25 diphenhydramine HCl 50 mg capsule 50 mg PO ONCE #1 cap 02/26/25 prednisone 50 mg tablet 50 mg PO .COMPLEX #3 tabs 02/26/25 Allergies Allergy/AdvReac Type Severity Reaction Status Date / Time iodine Allergy Unknown Verified 02/26/25 10:35 Review of Systems Review of Systems Narrative: See HPI Patient History Medical History Decreased hearing Depression Migraines Shoulder pain (~2017) Foot pain Carpal tunnel syndrome (~2002) Chicken pox Hearing loss Abnormal Pap smear of cervix Surgical History Anesthesia History of eye surgery Family History Father History of heart disease Hyperlipidemia Hypertension Brother Weight loss Hypertension Hyperlipidemia Sister Lupus Naveen's disease Hodgkin disease Grandfather Cancer Grandmother No problems noted. Grandfather History of heart disease Grandmother Cancer Social History Smoking Status: Unknown if ever smoked Smoking Status: Unknown if ever smoked Exam Narrative Exam Narrative: GENERAL: [45] year old patient appears stated age. Well-developed patient, in mild distress. HEAD: Atraumatic. Normocephalic. EYES: Pupils equal round and reactive. Extraocular motions intact. No scleral icterus. No injection or drainage. ENT: Nose without bleeding, purulent drainage. Airway patent. NECK: Trachea midline. Non tender CARDIOVASCULAR: Regular rate and rhythm without murmurs, gallops, or rubs. RESPIRATORY: No increased work of breathing or respiratory EXTREMITIES: On the patient's left palm at approximately 2 cm below the 3rd digit/middle finger there is a less than 1 mm area of erythema/very superficial appearing abrasion without laceration or obvious puncture wound at the site of injury per patient. There is no active bleeding. No edema or joint tenderness. NEURO: AOx3. SKIN: No rash or erythema of visible areas Initial Vital Signs Initial Vital Signs: Vital Signs Temperature 97.0 F L 02/26/25 10:35 Pulse Rate 78 02/26/25 10:35 Respiratory Rate 14 02/26/25 10:35 Blood Pressure 129/83 02/26/25 10:35 Pulse Oximetry 97 02/26/25 10:35 Oxygen Delivery Method Room Air 02/26/25 10:35 Course Vital Signs Vital signs: Vital Signs - 8 hr 02/26/25 12:16 Pulse Rate 62 Respiratory Rate 18 Blood Pressure 129/67 Pulse Oximetry 98 Oxygen Delivery Method Room Air Medical Decision Making Differential Diagnosis Differential Diagnosis: Exposure to blood or body fluids, puncture wound Medical Records Medical records reviewed: Yes I reviewed the patient's medical records. Lab Data Lab results reviewed: Yes I reviewed the patient's lab results. Labs: Lab Results 02/26/25 Range/Units 10:50 ALT 22 (<35) IU/L Hep Bs Antigen Negative (NEGATIVE) s/c Hepatitis C Antibody (NEGATIVE) s/c HIV 1&2 Ab/P24 Ag 4thGn Negative (NEGATIVE) MDM Narrative Medical decision making narrative: This is a generally healthy 45-year-old presenting with concern for exposure to blood or body fluids due to puncture through 2 pairs of gloves from what she believes was met scar scissors while working in sterile processing after a surgical procedure. [id number]. This is completed during the patient's visit. She was advised to contact [facility] immediately today in regards to the source patient so that they can move forward with labs as needed on this person. Labs from the exposed patient today were drawn from triage including HIV and hepatitis labs. Patient was returned to work today as she had no concerns about returning and exam did not indicate any need for abstaining from work. Employee Health lead Oriana Spencer did come to the ER after the patient was discharged and advised that they spoke with the operating room and in fact the tools that the patient was using were out of the package but they had not been used at all during the surgery. They were simply going through the Decon procedure because they had been opened and needed to be Re sterilized she states they also confirmed they were not at all mixed with other tools that has been used. Thus it appears the patient did not actually have a body fluid exposure and likely will not require further care for this after today's visit. Discharge Plan Departure Patient Disposition: Home Clinical Impression: Employee exposure to body fluids, Exposure to blood or body fluid Instructions: DI for Accidental Exposure to Body Fluids Activity Restrictions/Additional Instructions: *You have been diagnosed with [possible exposure to blood or body fluids] *What to do: *Please continue to take your regular medications as directed. [ ] New medication prescriptions sent to your pharmacy: [ ] [ ] New medication written as a paper prescription [X ] No new medications given *Please follow up with your primary care provider in 2-3 days, call for an appointment. Let them know you were seen in the Emergency Department and that we ask that you be seen in follow up. We will electronically transmit a record of today's note if your PCP is in our system. Based on your exam today and the injury you sustained; as well as the fact that the scissors you came in contact were in Decon/sterilizing solution, it was probable that your risk of body fluid exposure or becoming ill from this exposure is low, we did discuss post exposure prophylaxis, I think that you should also talk to Employee Health about this based on the source patient's health information. If they are positive for common blood borne pathogens certainly would be reasonable to consider post exposure prophylaxis. We asked you to contact [facility] today to discuss this with them, your supervisor alteration workroom is also aware and sent you here to the emergency department for evaluation. Labs were drawn from you today and you will likely need repeat labs to be drawn down the line after further discussion with [employer]. I am clearing you to returned to work today as you stated you feel comfortable with this. I completed your L and I paperwork today as well. Please follow up closely with an L and I provider, employee health and your PCP as needed. *If you do not have a primary care provider please contact the [facility] Resource line at [phone]. They will ask some questions about your medical history and help get you set up with a doctor in the community. *Return to Emergency Department if you should have any new, worsening or concerning symptoms, such as [fever greater than 101 F, shaking chills, worsening pain, persistent vomiting or other bothersome symptoms] Prescriptions: No Action gabapentin 100 mg capsule 100 mg PO BEDTIME Qty: 30 0RF prednisone 50 mg tablet 50 mg PO .COMPLEX Qty: 3 0RF Rx Instructions: 50 mg orally 13 hours, 7 hours & one hour prior to CT scan; diphenhydramine HCl 50 mg capsule 50 mg PO ONCE Qty: 1 0RF Rx Instructions: take one capsule (50mg) one-hour prior to contrast administration. Must have boat driver. Referrals: Susy Dominique MD [Primary Care Provider] - Stand Alone Forms: Patient Portal/API/Survey, Work Release Note
[2025-02-26 11:58] LABS: Hepatitis B Surface Antigen NEGATIVE s/c (NEGATIVE)
[2025-02-26 12:16] VITALS: BP 129/67; PULSE 62; RESP 18; O2SAT 98
[2025-02-26 13:22] LABS: HIV 1 & 2 Ab/Ag 4th Gen Combo NEGATIVE (NEGATIVE)
[2025-02-27 07:08] LABS: Hepatitis B Surf Ab Qualitativ Non Reactive (.)
== END 2025-02-26 12:17 | disposition home or self-care (01) ==
PROVIDERS: Family Medicine; Emergency Provider Student in an Organized Health Care Education/Training Program; Family Provider Family Medicine; PCP Family Medicine
DX: Z77.21 Contact with and (suspected) exposure to potentially hazardous body fluids (principal)
CPT/HCPCS: 36415; 84460; 86706; 86803; 87340; 87389; 99281; 99283

== ENCOUNTER → 2025-03-09 12:02 | Outpatient (CLI) | payer OTHER, SELFPAY ==
--- NOTE | 2025-03-09 12:03 | DI.CT.S_ITS ---
PROCEDURE: CT ABDOMEN PELVIS W CON INDICATIONS: Pelvic mass TECHNIQUE: After the administration of intravenous contrast, axial sections acquired from the lung bases to the pubic symphysis. Coronal and sagittal reformats were performed. For radiation dose reduction, the following was used: automated exposure control, adjustment of mA and/or kV according to patient size. COMPARISON: None. FINDINGS: Image quality: Diagnostic Lower chest: Unremarkable lung bases. Normal heart size. Liver: Unremarkable Gallbladder and biliary system: Cholelithiasis, nondilated. Pancreas: No duct dilation Spleen: Prominent at 13 cm Adrenals: No discrete nodules Kidneys: No hydronephrosis. No solid renal mass Vessels and lymph nodes: The main portal vein is patent. No abdominal aortic aneurysm. No pathologic lymphadenopathy by size criteria. Bowel and peritoneum: No small bowel obstruction. No drainable ascites. Body wall: Small fat and omentum containing umbilical hernia. Pelvis: Calcified fundal uterine mass with calcifications measuring up to 11 x 8 cm. Other small uterine masses are likely present for example the right adnexa. Suspect ovarian cysts, measuring up to 2.9 cm on the left. Bones: There are degenerative changes. No aggressive appearing osseous abnormality. IMPRESSION: Pelvic mass corresponds to a large uterine lesion arising from the fundus with numerous calcifications. This is most commonly a fibroid. Other smaller calcified fibroids are likely also present. (Sarcoma, in particular leiomyosarcoma, is rare but cannot be excluded by CT.) Small variant cystic lesions. These findings could be better assessed with gynecologic protocol pelvic MRI. Other findings above. Dictated by: Tevin Martins M.D. on 03/09/2025 at 14:50 Approved by: Tevin Martins M.D. on 03/09/2025 at 15:03
--- NOTE | 2025-03-09 12:03 | DI.MG.S_ITS ---
MM screening mammo BI: 03/09/2025. BI-RADS: 0 CLINICAL: 45-year old female for bilateral screening mammogram. Tyrer-Cuzick lifetime risk of 13.3%. No personal or first-degree family history of breast cancer. PRIOR EXAMS No prior examinations available. MAMMOGRAPHY TECHNIQUE: 2D and 3D (tomosynthesis) digital mammographic views obtained, with additional images as needed for full coverage. Current study was also evaluated with a Computer Aided Detection (CAD) system. DENSITY C. The breasts are heterogeneously dense, which may obscure small masses. MAMMOGRAPHY FINDINGS Right: Upper Outer at 11:00, Anterior depth: Focal asymmetry needing additional imaging evaluation. Right: Upper Outer at 10:30, Far Anterior depth: Asymmetry. Left: No suspicious mass, asymmetry, microcalcification, or other abnormality seen. IMPRESSION: Right (Asymmetry): Upper Outer at 11:00, Anterior depth * Incomplete - focal asymmetry needing additional imaging evaluation. Left * No evidence of malignancy. RECOMMENDATIONS Right: Upper Outer at 11:00, Anterior depth * Further evaluation with diagnostic mammography and diagnostic ultrasound. Ultrasound to be performed only if needed. OVERALL ASSESSMENT CATEGORY BI-RADS-0: Incomplete - Need Additional Imaging Evaluation. ELECTRONICALLY SIGNED: Su Mills M.D. on 03/09/2025 at 04:40:53 PM PT Interpreting Station ID: [id number]
== END ==
LOC: CT 12:03
PROVIDERS: Family Provider Family Medicine; PCP Family Medicine; Referring Provider Family Medicine; Visit Provider Family Medicine
DX: Z12.31 Encounter for screening mammogram for malignant neoplasm of breast (principal); R92.333 Mammographic heterogeneous density, bilateral breasts; N85.9 Noninflammatory disorder of uterus, unspecified; R19.00 Intra-abdominal and pelvic swelling, mass and lump, unspecified site; K42.9 Umbilical hernia without obstruction or gangrene; K80.20 Calculus of gallbladder without cholecystitis without obstruction
CPT/HCPCS: 74177; 77063; 77067; Q9967

== ENCOUNTER → 2025-03-14 13:13 | Outpatient (CLI) | payer OTHER, SELFPAY ==
--- NOTE | 2025-03-14 13:14 | DI.MRI.S_ITS ---
PROCEDURE: MR PELVIS WO/W CON INDICATIONS: uterine mass TECHNIQUE: Coronal HASTE, sagittal breath-hold T2 FSE; axial T1 FSE with and without fat saturation through the pelvis. Optional long- and short-axis uterine nonbreath-hold T2 FSE through the uterus. Sagittal or axial dynamic VIBE during administration of contrast. Post-contrast axial or coronal VIBE/2-D FLASH with fat saturation from the iliac crests to the symphysis. Optional diffusion weighted imaging and ADC may be performed. COMPARISON: [facility], CT, CT ABDOMEN PELVIS W CON, 03/09/2025, 13:11. FINDINGS: Image quality: Excellent. Uterus: Uterus is anteflexed. Endometrium is normal in thickness measuring 8 mm. Junctional zone is normal in thickness at 12 mm or less. A few small myometrial cysts. Nabothian cysts. Large fundal microlobulated uterine mass measuring 11.5 x 9.5 x 8.1 cm, (3/17 and 5/14). T2 hypointense with areas of internal heterogeneity which correspond to the calcifications seen on prior CT. Heterogeneous enhancement. No restricted diffusion. A few additional small fibroids. For example: -Anterior fundal fibroid measuring 2.3 cm, (3/10). -Left fundal fibroid measuring 0.9 cm, (6/24). Adnexa: Both ovaries are normal in size, without suspicious cystic or solid lesions. Small T2 hyperintense cysts. Urinary system: Bladder wall is normal in thickness. Distal ureters are non distended. Urethra appears normal in morphology. Nodes and vessels: No pelvic or inguinal adenopathy by size criteria. Iliac vessels are normal in size. Bowel and peritoneum: No pathologic free pelvic fluid. Inferior colon and small bowel loops are normal in caliber. Soft tissues: No inguinal hernias. No findings of pelvic floor incompetence in the absence of provocation. Bones: Marrow demonstrates normal overall signal. IMPRESSION: 1. Massive anterior uterine mass measuring 11.5 cm. Findings most consistent with a uterine fibroid. No suspicious areas of restricted diffusion or invasion demonstrated. 2. A few additional small uterine fibroids. 3. No suspicious ovarian cysts. Dictated by: Higinio Fonseca M.D. on 03/15/2025 at 9:57 Approved by: Higinio Fonseca M.D. on 03/15/2025 at 10:11
== END ==
PROVIDERS: Family Provider Family Medicine; PCP Family Medicine; Referring Provider Family Medicine; Visit Provider Family Medicine
DX: N85.8 Other specified noninflammatory disorders of uterus (principal); D25.9 Leiomyoma of uterus, unspecified
CPT/HCPCS: 72197; A9579

== ENCOUNTER → 2025-05-11 08:44 | Outpatient (CLI) | payer OTHER, SELFPAY ==
--- NOTE | 2025-05-11 08:45 | DI.MG.S_ITS ---
MM diagnostic mammo unilat RT, US breast RT limited: 05/11/2025 BI-RADS: 2 CLINICAL: 45-year old female for right diagnostic mammogram and right diagnostic breast ultrasound that is a recall from screening on 03/09/2025. Tyrer-Cuzick lifetime risk of 13.3%. No personal or first-degree family history of breast cancer. PRIOR EXAMS: 03/09/2025. MAMMOGRAPHY TECHNIQUE: 2D and 3D (tomosynthesis) digital mammographic views obtained, with additional images as needed for full coverage. Current study was also evaluated with a Computer Aided Detection (CAD) system. ULTRASOUND TECHNIQUE TARGETED Right Breast Ultrasound: Real-time ultrasound exam was performed focused to area of clinical and/or imaging concern. Real-time linton scale and color doppler imaging of the area of clinical interest was performed with image documentation. DENSITY Right: C. The breasts are heterogeneously dense, which may obscure small masses. MAMMOGRAPHY FINDINGS Right: Upper Outer at 11:00, Anterior depth: The questioned focal asymmetry likely represents superimposition of normal fibroglandular tissue. Right: Upper Outer at 11:00, Far Anterior depth. Previous report: at 10:30: The questioned focal asymmetry likely represents superimposition of normal fibroglandular tissue. ULTRASOUND FINDINGS Right: Upper Outer at 11:00, 4 cm from nipple, measuring 0.5 x 0.6 x 0.5 cm: There is a simple anechoic cyst. Doppler shows no vascularity. Right: Upper Outer at 10:30: There is no sonographic correlate for the mammographic finding. No mass or additional cyst seen in the region of the possible focal asymmetry. No suspicious sonographic finding with typically benign findings noted. IMPRESSION: Right * No evidence of malignancy with benign findings. RECOMMENDATIONS Bilateral * Annual screening mammography in one year. OVERALL ASSESSMENT CATEGORY BI-RADS-2: Benign. The [employer] recommends annual screening mammography beginning at age 40 for women with average risk of breast cancer. ELECTRONICALLY SIGNED: Higinio Fonseca M.D. on 05/11/2025 at 11:32:01 AM PT Interpreting Station ID: [id number]
== END ==
LOC: MAMMO 08:45
PROVIDERS: Family Provider Family Medicine; PCP Family Medicine; Referring Provider Family Medicine; Visit Provider Family Medicine
DX: N60.01 Solitary cyst of right breast (principal); N64.89 Other specified disorders of breast; R92.331 Mammographic heterogeneous density, right breast
CPT/HCPCS: 76642; 77065; G0279

== ENCOUNTER 2025-05-17 06:31 | Inpatient (IN) | payer OTHER, SELFPAY ==
[2025-05-12 10:25] VITALS: BMI 32.4
[2025-05-17] VITALS (13 sets, daily range): BP systolic 106–142; BP diastolic 60–83; PULSE 63–476; RESP 12–18; TEMP 36.2–36.9; O2SAT 97–100; BMI 32.4
--- NOTE | 2025-05-17 | PATH_ITS ---
[facility] Accession Number: [id number] No. of containers..01 Tissue . 01 Material submitted: . uterus - UTERUS, CERVIX, BILATERAL FALLOPIAN TUBES . 01 Diagnosis: UTERUS, CERVIX, BILATERAL FALLOPIAN TUBES (WEIGHT 586 GRAMS): Cervix with no significant abnormality. Endocervix with no significant abnormality. Secretory endometrium; negative for endometrioid intarepithelial neoplasia or malignancy. Myometrium with multiple intramural leiomyomas with hyalinization and calcification (up to 6.9 cm in greatest dimension). Uterine serosa with no significan abnormality. Longer fallopian tube, complete cross-sections; negative for significant atypia. Milton fallopian tube, complete cross-sections; negative for significant atypia. [facility] 05/20/2025 1523 Local . 01 Electronically signed: . Etelvina Rice MD, Pathologist NPI- [id number] . 01 Gross description: . Received in formalin with two identifiers and uterus, cervix, bilat tubes, is a fragmented uterus (586 grams, 21.1 x 17.1 x 7.9 cm in aggregate), fragmented cervix (reapproximated to measure 2.7 x 1.9 cm), and two unoriented fimbriated fallopian tubes (6.5 x 0.9 cm and 6.2 x 0.8 cm), with no additional adnexa. . The ectocervix is hernandez to erythematous and smooth, and the endocervical canal has hernandez herringbone mucosa, and the identifiable portion measures 2.5 cm in length. The presumed endometrium is hernandez to brown and velvety, and averages 0.1 cm thick with no lesions identified. . The myometrium is hernandez and trabecular with multiple fragmented white whorled nodules with pieces up to 6.9 cm in greatest dimension. Sectioning reveal a white, whorled cut surface with numerous yellow to white gritty areas consistent with calcification. . Both tubes have violaceous, smooth serosa with no cysts identified. The lumen are stellate and unremarkable. Nuclear Scientist sections are submitted as follows: . A1: Cervix. A2: Endometrium. A3-A4: Nodules. A5: Longer fallopian tube. A6: Milton fallopian tube. . Block A4 briefly decalcified. ([id number]) /MRV 05/18/2025 [facility] Local . 01 Pathologist provided ICD-10: D25.9 . 01 CPT . 943523 Specimen Comment: A courtesy copy of this report has been sent to [facility] Pathology Performed at: [address] [address], [place], [place] [id number] MD Ervin Krishna MD Phone: [phone]
[2025-05-17] MEDS: SCOPOLAMINE 1 PATCH TOP (06:58)
[2025-05-17] MEDS: ACETAMINOPHEN 325 MG TABLET 975 MG PO (06:59)
[2025-05-17] MEDS: LACTATED RINGERS 1,000 ML 21 ML IV ×3 (07:00→12:33)
--- NOTE | 2025-05-17 07:33 | PM.PREOP ---
Pre-operative Note Interval Note History & Physical reviewed/Exam performed by Physician: Yes Changes to H&P: No H&P completed within 30 days and has changed as indicated here:: see clinic note from 05/04/25; plan for RA-TLH/BS, previously counseled and consented by Dr. Suggs
[2025-05-17] MEDS: CEFAZOLIN 2 GM/100 ML PREMIX 100 ML IV (07:56)
--- NOTE | 2025-05-17 08:09 | SUR.OPER ---
Lithotomy on padded OR bed. [place] Pad Positioner under torso. Head on pillow, arms padded and tucked at sides. Purple upper body safety strap. Legs secured in padded yellow fins stirrups.
[2025-05-17] MEDS: BUPIVACAINE 0.25% (PF) VIAL 30 ML INJ (08:10)
--- NOTE | 2025-05-17 12:06 | P.OP_ITS ---
Operative Date/Time/Diagnoses Date of procedure: 05/17/25 Time of procedure: 08:00 Pre-op diagnosis: Uterine leiomyomata Post-op diagnosis: same Procedure & Clinicians Procedure: Robotic-assisted total laparoscopic hysterectomy Bilateral salpingectomy Cystoscopy Same procedure(s) as scheduled: Yes Indications: 45yo F with bulk symptoms and multifibroid uterus, counseled and consented for the above procedures. Surgeon: Eugenia Wilson [employer] Team Leader: Jazimne Suggs Anesthesia Type: General Operative Notes Findings: Enlarged multifibroid uterus with numerous calcified fibroids. Normal appearing bilateral fallopian tubes and bilateral ovaries. Normal appearing liver edge. Approximately 90min spent morcellating the uterus. Specimen(s): other (uterus, cervix, bilateral fallopian tubes) Applied: catheter Estimated Blood Loss (mL): 100 Blood products transfused: none Procedure in detail: The risks, benefits, indications and alternatives of the procedure were reviewed with the patient and informed consent was obtained. The pt was taken to the op erating room where general anesthesia was obtained without difficulty. The pt was then placed in the low lithotomy position using Winston Stirrups and arms were tucked with padding. Sequential compression devices were placed bilaterally for VTE prophylaxis. She was then prepped and draped in the sterile fashion and a Moran catheter was placed. She received 2g Ancef for surgical prophylaxis. A V-care uterine manipulator was placed through the cervix into the uterus for uterine manipulation. Attention was then turned to the patient?s abdomen were an 8mm skin incision was made 2cm superior to the umbilicus after injecting 0.25% Marcaine. An 8mm trocar and sleeve were then carefully introduced into the peritoneal cavity under direct visualization at a 90-degree angle while tenting up the abdominal wall. Intra-peritoneal placement was confirmed under direct visualization with the laparoscope with entry pressure <5 mmHg. A pneumoperitoneum was obtained with several liters of CO2 gas, maximum pressure of 15 mmHg. Upon entry into the peritoneal cavity, structures immediately below the incision were inspected and found to be free of injury. Four additional 8mm port sites were placed under direct laparoscopic guidance in a horizontal line across the abdomen, in line with the umbilical incision. The [employer] surgical robot was then docked and instruments introduced into the abdomen under direct visualization. The vessel sealer was then used to clamp, cut, and ligate the left fallopian tube. The utero-ovarian and round ligaments were then clamped, cut, and ligated. The anterior broad ligament was then incised along the bladder reflection and the bladder was dissected off the lower uterine segment until endopelvic fascia was visualized. The uterine artery was then identified, skeletonized, and ligated on the left. The uterosacral ligament and cardinal ligament were transected on the left. Attention was then directed to the right side, where the same procedure was done to clamp, cut, and ligate the right fallopian tube and right side of the uterus. The anterior colpotomy was then made using the monopolar scissors and continued circumferentially inferior to the cervix using the colpotomy ring as a guide. The entire cervix and uterus was then successfully amputated. Attention was then directed vaginally, where the uterus was serially morcellated to allow for delivery through the vagina. This process took approximately 90min due to the extremely calcified uterus. Attention was then returned to the abdomen, where an 0 Stratafix suture was then introduced into the abdominal cavity, and the vaginal cuff was then closed robotically with the barbed suture in a running fashion. The suture needle was then removed via the lateral port under direct visualization. The pelvis was then suctioned, and excellent hemostasis was noted. The pneumoperitoneum was then released, the [employer] robot was undocked, and the ports were removed. The skin incisions were then reapproximated using 4-0 monocryl suture in a subcuticular fashion and covered with Dermabond. The moran catheter was noted to have blood-tinged urine, thus decision was made to proceed with cystoscopy. The moran was removed, and the cystoscope was advanced through the urethra and into the bladder. Both ureteral orifices were identified and bilateral efflux of urine was visualized. A survey of the bladder did not show defects or visible suture, but some abrasions were noted along the trigone, likely as a result of prolonged vaginal manipulation during morcellation. The cystoscope was then removed, the bladder was drained, and the moran catheter was replaced. At the completion of the case the sponge and needle counts were correct x 2, and all instruments were confirmed to be removed from the vagina. The patient was taken to the PACU in stable condition. Complications: none Post-operative Condition: stable Disposition: PACU Plan for aftercare: Plan for discharge home once patient meets discharge criteria.
--- NOTE | 2025-05-17 12:59 | SUR.PHASEII ---
Dr. Wilson ordered for the catheter to be removed. Catheter removed by this RN. patient tolerated well.
--- NOTE | 2025-05-17 15:00 | SUR.PHASEII ---
Patient up to the bathroom to void. Voided 5-10mls pink urine and patient reported that she felt her bladder was empty. Bladder scan showed 44mls. Dr. Suggs notified.
== END 2025-05-17 16:33 | disposition home or self-care (01) | DRG 743 ==
PROVIDERS: Student in an Organized Health Care Education/Training Program; Admitting Provider Obstetrics & Gynecology; Family Provider Family Medicine; PCP Family Medicine; Referring Provider Obstetrics & Gynecology; Visit Provider Obstetrics & Gynecology
PROC: 0UT94ZZ Resection of Uterus, Percutaneous Endoscopic Approach (ICD-10-PCS; principal; 2025-05-17 07:45)
DX: D25.1 Intramural leiomyoma of uterus (principal); D25.2 Subserosal leiomyoma of uterus
CPT/HCPCS: J0690; J1171; J1885; J2250; J2405; J2704; J3010; J3490